=== PATIENT | female | born 2000 | race African-American/Black ===

== ENCOUNTER 2023-09-24 17:18 | Emergency (ER) | payer OTHER ==
--- OUTSIDE RECORDS SUMMARY | 2023-09-24 17:26 | XMS REPORT | Continuity of Care Document ---
:2000 Author Organization [facility] t Address [address] [facility] [address] [place] [address] Care Team Providers Name Role Phone Pcp, Patient Does Not Have A Primary Care Physician [id number] Fidelia Zhang PA-C Attending Clinician DEE MARIE Attending Clinician Unavailable EVONNE HARMON Attending Clinician Unavailable Josephine PASTRY FINISHEREvonne Attending Clinician Dee Marie MD Attending Clinician UNKNOWN, ATTENDING Attending Clinician Unavailable FIDELIA ZHANG Attending Clinician Unavailable Andre Stewart MD Attending Clinician ANDRE STEWART Attending Clinician Unavailable Nurse, [facility] Attending Clinician Unavailable Doctor Unassigned, [place] Attending Clinician Unavailable ELMIRA Attending Clinician Unavailable Cosmo Attending Clinician Unavailable [place] Admitting Clinician Unavailable Cosmo Admitting Clinician Unavailable Payers Payer Name Policy Type Policy Number Effective Date Expiration Date Paty ald[place] [id number] 2019 [place] (PP[place] 00:00:00 [facility] [id number] CHOICE (MEDICAID HMO) Problems Condition Condition Condition Status Onset Resolution Last Treating Co mments Source Name Details Category Date Date Treatment Clinician Date Obesity Obesity Disease Active 2020-11 Univers (BMI (BMI 0-08 ity of 30-39.9) 30-39.9) 00:00: [place] [id number] Medical Branch Need for Need for Disease Active Unive rs HPV HPV 6-01 ity of vaccin[place] Medical Branch Breakthrou Breakthrou Disease Active U nivers gh gh 6 ity of bleeding bleeding 00:00: [place] on on Medical Nexplanon Nexplanon Bran ch Vaginal Vaginal Disease Active Univers discharge discharge 04-13 ity of 00:00: [place] 00 Medical Branch Anxiety Anxiety Problem Active [place] 708 da [facility] Depressive Depressive Problem Active M [place] disorder Disorder 05-20 da 00:00: [facility] Atopic Atopic Disease Active Overview: [facility] s dermatitis dermatitis 312 [address] ity of and and 00:00: g of this [place] related related 00 note Medical condition condition might be Br anch different from the original. 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 Allergies, Adverse Reactions, Alerts Allergy Allergy Status Severity Reaction(s) Onset Inactive Treating Comm ents Source Name Type Date Date Clinician NO KNOWN Drug Active Univers ALLERGIE Class ity of S [facility] Social History Social Habit Start Date Stop Date Quantity Comments Source Gender identity Universit y of [facility] Sexual orientation Univer [facility]ity [facility] History SDNJ University o f Alcohol Std Drinks [facility] History [facility] University o f Alcohol Binge [place] [facility] Exposure to Not sure University of SARS-CoV-2 (event) [facility] History [facility] University o f Alcohol Comment [place] [facility] History of Social 2021-08-20 2021-08-20 Univers ity of function 00:00:00 00:00:00 [facility] Branch Alcohol intake 2021-08-20 2021-08-20 Lifetime University of 00:00:00 00:00:00 non-drinker [facility] (finding) [facility] Tobacco use and 2020-10-05 2020-10-05 Smokeless Universit y of exposure 00:00:00 00:00:00 tobacco non-user [facility] dical Branch History SDOH 2020-10-05 2020-10-05 1 University o f Alcohol Frequency 00:00:00 00:00:00 [facility] edical Branch Sex Assigned At 2000 2002 Universit y of 00:00:00 00:00:00 [facility] Branch Smoking Status Start Date Stop Date Source Never smoked tobacco [facility] Medications Ordered Filled Start Stop Current Ordering Indication Dosage Frequency Signature Comments Components Source Medication Medication Date Date Medication? Clinician (SIG) Name Name Matt 2020-11- No [id number] 100mg Take 1 Univers oin&Nit. 0-08 10-14 capsule by ity of Macrocryst 00:00: 04:59 mouth 2 [place] as (MACROBID) 00 :00 (two) Medical 100 mg times Branch capsule daily for 5 days. escitalopra Yes 10mg Take 10 mg Univers m oxalate 6-01 by mouth ity of (LEXAPRO) 13:52: daily. [place] 10 mg 23 Medical tablet Branch escitalopra Yes 10mg Take 10 mg Univers m oxalate 6-01 by mouth ity of (LEXAPRO) 13:52: daily. [place] 10 mg 23 Medical tablet Branch escitalopra Yes 10mg Take 10 mg Univers m oxalate 6-01 by mouth ity of (LEXAPRO) 13:52: daily. [place] 10 mg 23 Medical tablet Branch escitalopra Yes 10mg Take 10 mg Univers m oxalate 6-01 by mouth ity of (LEXAPRO) 13:52: daily. [place] 10 mg 23 Medical tablet Branch escitalopra Yes 10mg Take 10 mg Univers m oxalate 6-01 by mouth ity of (LEXAPRO) 13:52: daily. [place] 10 mg 23 Medical tablet Branch escitalopra Yes 10mg Take 10 mg Univers m oxalate 6-01 by mouth ity of (LEXAPRO) 13:52: daily. [place] 10 mg 23 Medical tablet Branch escitalopra Yes 10mg Take 10 mg Univers m oxalate 6-01 by mouth ity of (LEXAPRO) 13:52: daily. [place] 10 mg 23 Medical tablet Branch escitalopra Yes 10mg Take 10 mg Univers m oxalate 6-01 by mouth ity of (LEXAPRO) 13:52: daily. [place] 10 mg 23 Medical tablet Branch escitalopra Yes 10mg Take 10 mg Univers m oxalate 6-01 by mouth ity of (LEXAPRO) 13:52: daily. [place] 10 mg 23 Medical tablet Branch escitalopra Yes 10mg Take 10 mg Univers m oxalate 6-01 by mouth ity of (LEXAPRO) 13:52: daily. [place] 10 mg 23 Medical tablet Branch escitalopra Yes 10mg Take 10 mg Univers m oxalate 6-01 by mouth ity of (LEXAPRO) 13:52: daily. [place] 10 mg 23 Medical tablet Branch escitalopra Yes 10mg Take 10 mg Univers m oxalate 6-01 by mouth ity of (LEXAPRO) 13:52: daily. [place] 10 mg 23 Medical tablet Branch norgestimat Yes [id number] 1{tbl} Take 1 Univers e-ethinyl 6-01 tablet by ity o f estradioL 00:00: mouth [place] 0.25-35 00 daily. Medical mg-mcg per Branch tablet norgestimat Yes [id number] 1{tbl} Take 1 Univers e-ethinyl 6-01 tablet by ity o f estradioL 00:00: mouth [place] 0.25-35 00 daily. Medical mg-mcg per Branch tablet norgestimat Yes [id number] 1{tbl} Take 1 Univers e-ethinyl 6-01 tablet by ity o f estradioL 00:00: mouth [place] 0.25-35 00 daily. Medical mg-mcg per Branch tablet norgestimat Yes [id number] 1{tbl} Take 1 Univers e-ethinyl 6-01 tablet by ity o f estradioL 00:00: mouth [place] 0.25-35 00 daily. Medical mg-mcg per Branch tablet norgestimat Yes [id number] 1{tbl} Take 1 Univers e-ethinyl 6-01 tablet by ity o f estradioL 00:00: mouth [place] 0.25-35 00 daily. Medical mg-mcg per Branch tablet norgestimat Yes [id number] 1{tbl} Take 1 Univers e-ethinyl 6-01 tablet by ity o f estradioL 00:00: mouth [place] 0.25-35 00 daily. Medical mg-mcg per Branch tablet norgestimat Yes [id number] 1{tbl} Take 1 Univers e-ethinyl 6-01 tablet by ity o f estradioL 00:00: mouth [place] 0.25-35 00 daily. Medical mg-mcg per Branch tablet norgestimat Yes [id number] 1{tbl} Take 1 Univers e-ethinyl 6-01 tablet by ity o f estradioL 00:00: mouth [place] 0.25-35 00 daily. Medical mg-mcg per Branch tablet norgestimat Yes [id number] 1{tbl} Take 1 Univers e-ethinyl 6-01 tablet by ity o f estradioL 00:00: mouth [place] 0.25-35 00 daily. Medical mg-mcg per Branch tablet norgestimat Yes [id number] 1{tbl} Take 1 Univers e-ethinyl 6-01 tablet by ity o f estradioL 00:00: mouth [place] 0.25-35 00 daily. Medical mg-mcg per Branch tablet norgestimat Yes [id number] 1{tbl} Take 1 Univers e-ethinyl 6-01 tablet by ity o f estradioL 00:00: mouth [place] 0.25-35 00 daily. Medical mg-mcg per Branch tablet norgestimat Yes [id number] 1{tbl} Take 1 Univers e-ethinyl 6-01 tablet by ity o f estradioL 00:00: mouth [place] 0.25-35 00 daily. Medical mg-mcg per Branch tablet etonogestre 2019-11 Yes 68mg 68 mg by Un raghavendra L 68 mg 1-23 Subdermal ity of [place] 15:13: route [place] 36 [place]. Medical Branch etonogestre 2019-11 Yes 68mg 68 mg by Un raghavendar L 68 mg 1-23 Subdermal ity of [place] 15:13: route [place] 36 [place]. Medical Branch etonogestre 2019-11 Yes 68mg 68 mg by Un raghavendra L 68 mg 1-23 Subdermal ity of [place] 15:13: route [place] 36 now. Medical Branch etonogestre 2019-11 Yes 68mg 68 mg by Un raghavendra L 68 mg 1-23 Subdermal ity of [place] 15:13: route [place] 36 now. Medical Branch etonogestre 2019-11 Yes 68mg 68 mg by Un raghavendra L 68 mg 1-23 Subdermal ity of [place] 15:13: route [place] 36 now. Medical Branch etonogestre 2019- Yes 68mg 68 mg by Un raghavendra L 68 mg 1-23 Subdermal ity of implant 15:13: route [place] now. Medical Branch etonogestre 2019-11 Yes 68mg 68 mg by Un raghavendra L 68 mg 1-23 Subdermal ity of [place] 15:13: route [place] now. Medical Branch etonogestre 2019-11 Yes 68mg 68 mg by Un raghavendra L 68 mg 1-23 Subdermal ity of implant 15:13: route once [place] now. Medical Branch etonogestre 2019-11 Yes 68mg 68 mg by Un raghavendra L 68 mg 1-23 Subdermal ity of implant 15:13: route [place] now. Medical Branch etonogestre 2019-11 Yes 68mg 68 mg by Un raghavendra L 68 mg 1-23 Subdermal ity of implant 15:13: route once [place] 36 now. Medical Branch etonogestre 2019-11 Yes 68mg 68 mg by Un raghavendra L 68 mg 1-23 Subdermal ity of implant 15:13: route once [place] 36 now. Medical Branch etonogestre 2019-11 Yes 68mg 68 mg by Un raghavendra L 68 mg 1-23 Subdermal ity of implant 15:13: route once [place] 36 now. Medical Branch fluticasone Yes [id number] Apply to Univers (CUTIVATE) 3-12 area(s) 2 ity of 0.05 % 00:00: (two) [place] cream 00 times Medical daily. Branch fluticasone Yes [id number] Apply to Univers (CUTIVATE) 3-12 area(s) 2 ity of 0.05 % 00:00: (two) [place] cream 00 times Medical daily. Branch fluticasone 2012- Yes [id number] Apply to Univers (CUTIVATE) 3-12 area(s) 2 ity of 0.05 % 00:00: (two) [place] cream 00 times Medical daily. Branch fluticasone 2012- Yes [id number] Apply to Univers (CUTIVATE) 3-12 area(s) 2 ity of 0.05 % 00:00: (two) [place] cream 00 times Medical daily. Branch fluticasone 2012-0 Yes [id number] Apply to Univers (CUTIVATE) 3-12 area(s) 2 ity of 0.05 % 00:00: (two) [place] cream 00 times Medical daily. Branch fluticasone 2012-0 Yes [id number] Apply to Univers (CUTIVATE) 3-12 area(s) 2 ity of 0.05 % 00:00: (two) [place] cream 00 times Medical daily. Branch fluticasone 2012-0 Yes [id number] Apply to Univers (CUTIVATE) 3-12 area(s) 2 ity of 0.05 % 00:00: (two) [place] cream 00 times Medical daily. Branch fluticasone 2012-0 Yes [id number] Apply to Univers (CUTIVATE) 3-12 area(s) 2 ity of 0.05 % 00:00: (two) [place] cream 00 times Medical daily. Branch fluticasone 2012-0 Yes [id number] Apply to Univers (CUTIVATE) 3-12 area(s) 2 ity of 0.05 % 00:00: (two) [place] cream 00 times Medical daily. Branch fluticasone 2012- Yes [id number] Apply to Univers (CUTIVATE) 3-12 area(s) 2 ity of 0.05 % 00:00: (two) [place] cream 00 times Medical daily. Branch fluticasone 2012-0 Yes [id number] Apply to Univers (CUTIVATE) 3-12 area(s) 2 ity of 0.05 % 00:00: (two) [place] cream 00 times Medical daily. Branch fluticasone 2012- Yes [id number] Apply to Univers (CUTIVATE) 3-12 area(s) 2 ity of 0.05 % 00:00: (two) [place] cream 00 times Medical daily. Karen escitalopra escitalopra No escitalopr [place] m 10 mg m 10 mg am 10 mg da tablet TK 1 tablet TK 1 tablet TK [facility] PO QD T PO QD 1 T PO QD al [facility] Mirena 20 Mirena 20 No Mirena 20 [place] mcg/24 mcg/24 mcg/24 da hours (5 hours (5 hours (5 Epi scop yrs) 52 mg yrs) 52 mg yrs) 52 mg al intrauterin intrauterin intrauteri Health e device e device ne device Ou treac Take 1 Take 1 Take 1 h device by device by device by Program intrauterin intrauterin intrauteri e route. e route. ne route. Immunizations Ordered Filled Date Status Comments Source Immunization Name Immunization Name [facility] 2021-07-14 Completed University of 00:00: [place] [address] 2021-07-14 Completed University of 00:00:00 [place] [address] 2021-07-14 Completed University of 00:00: [facility] 2021-07-14 Completed University of 00:00:00 [facility] 2021-07-14 Completed University of 00:00:00 [facility] 2021-07-14 Completed University of 00:00:00 [facility] 2021-07-14 Completed University of 00:00:00 [facility] 2021-07-14 Completed University of 00:00:00 [place] [address] 2021-07-14 Completed University of 00:00:00 [facility] 2021-07-14 Completed University of 00:00:00 [facility] 2021-07-14 Completed University of 00:00:00 [facility] 2021-04-13 Completed University of 00:00:00 [facility] 2021-04-13 Completed University of 00:00:00 [facility] 2021-04-13 Completed University of 00:00:00 [facility] 2021-04-13 Completed University of 00:00:00 [facility] 2021-04-13 Completed University of 00:00:00 [facility] 2021-04-13 Completed University of 00:00:00 [facility] 2021-04-13 Completed University of 00:00:00 [facility] 2021-04-13 Completed University of 00:00:00 [facility] 2021-04-13 Completed University of 00:00:00 [facility] 2021-04-13 Completed University of 00:00:00 [facility] 2021-04-13 Completed University of 00:00:00 [facility] Unknown Completed [place] [address] Unknown Completed [facility] Vital Signs Vital Name Observation Time Observation Value Comments Source Systolic blood 2023-06-04 00:18:00 127 mm[Hg] Univer sity of pressure [facility] Diastolic blood 2023-06-04 00:18:00 90 mm[Hg] Unive rsity of pressure [facility] Heart rate 2023-06-04 00:18:00 94 /min Universi ty of [facility] Body temperature 2023-06-04 00:18:00 38.11 Noemi Univ ersity of [facility] Respiratory rate 2023-06-04 00:18:00 18 /min Univ ersity of [facility] Body height 2023-06-04 00:18:00 165.1 cm Universi ty [facility] Body weight 2023-06-04 00:18:00 81.647 kg Universi ty of [facility] BMI 2023-06-04 00:18:00 29.95 kg/m2 Universi ty of [facility] Oxygen saturation in 2023-06-04 00:18:00 98 /min [facility] Arterial blood by [facility] Pulse oximetry Branch Systolic blood 2021-08-20 17:02:00 138 mm[Hg] Univer sity of pressure [facility] Diastolic blood 2021-08-20 17:02:00 77 mm[Hg] Unive rsity of pressure [facility] Heart rate 2021-08-20 17:02:00 69 /min Universi ty of [facility] Body temperature 2021-08-20 17:02:00 36.94 Noemi Univ ersity of [facility] Respiratory rate 2021-08-20 17:02:00 18 /min Univ ersity of [facility] Body height 2021-08-20 17:02:00 157.5 cm [facility]i ty of [facility] Body weight 2021-08-20 17:02:00 75.297 kg Universi ty of [facility] BMI 2021-08-20 17:02:00 30.36 kg/m2 Universi ty of [facility] Body mass index 2021-08-20 17:02:00 94.39 % Unive rsity of (BMI) [Percentile] [facility] [place] ical Per age and sex Branch BP Diastolic 2020-06-22 00:00:00 70 mm[Hg] Yumiko telles [facility] Height 2020-06-22 00:00:00 63 [in_i] [place] [facility] BMI (Body Mass 2020-06-22 00:00:00 28.9 kg/m2 [place]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) [facility] BP Systolic 2020-06-22 00:00:00 118 mm[Hg] [place] [facility] Body Weight 2020-06-22 00:00:00 163 [lb_av] [place] [facility] BP Diastolic 2020-05-20 00:00:00 66 mm[Hg] [place] [facility] Height 2020-05-20 00:00:00 63 [in_i] [place] [facility] BMI (Body Mass 2020-05-20 00:00:00 28.1 kg/m2 [place]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) [facility] BP Systolic 2020-05-20 00:00:00 116 mm[Hg] [place] [facility] Body Weight 2020-05-20 00:00:00 158.4 [lb_av] [place] [facility] Procedures Procedure Date / Time Performed Performing Clinician [facility] e ASSIGNMENT OF BENEFITS 2023-06-04 00:30:30 Doctor Unassigned, No [facility] Medical Branch NOTICE OF PRIVACY 2023-06-04 00:15:22 Doctor Unassigned, No [facility] [place] CONSENT/REFUSAL FOR 2023-06-04 00:14:27 Doctor Unassigned, No Un [facility] DIAGNOSIS AND [facility] Medical Branch TREATMENT POCT URINALYSIS W/O 2021-08-20 00:00:00 [facility]IFIC GRAVITY Medical Branch Plan of Care Planned Activity Planned Date Details Comments Source Diagnostic Test 2020-06-22 test, [place] [facility] Pending 00:00:00 urine [code = Health Outreac h test, Program urine] Encounters Start End Encounter Admission Attending Care Care Encounter Source Date/Time Date/Time Type Type Clinicians Facility Department ID 2023-08-04 2023-08-04 Telephone TOBIAS Zhang [id number] Univers 00:00:00 00:00:00 Fidelia TAYLOR [id number] i ty of [facility] [id number] [id number] [place] dical NAL [address] [place] [address] 2023-08-01 2023-08-01 Telephone [facility] [id number] Univers 00:00:00 00:00:00 Fidelia TAYLOR [id number] i ty of [place] [id number] [place] [id number] [address] 2023-07-21 2023-07-21 [facility] [id number] Univers 09:00:00 09:00:00 DEE ng [facility] 2023-06-03 2023-06-03 Emergency X [facility] ERT [id number] Univers 19:23:00 19:27:00 EVONNE ng [facility] 2023-06-03 2023-06-03 Emergency [facility] [id number] Univers 19:23:00 19:27:00 Evonne TAYLOR [id number] ity [id number] [id number] [address] 2023-05-30 2023-05-30 Telephone [facility] [id number] Univers 00:00:00 00:00:00 Dee TAYLOR [id number] ity of [facility] [id number] [id number] [place] dical NAL [address] [place] [address] 2023-04-20 2023-04-20 Telephone [facility] [id number] Univers 00:00:00 00:00:00 Fidelia TAYLOR [id number] i ty of [facility] [id number] [id number] [place] dical NAL [address] [place] [address] 2022-11-192022-11-19 Outpatient R NIKIA [facility] [id number] Univers 13:20:00 13:20:00 ATTENDING y [facility] 2022-11-16 2022-11-16 Outpatient R LULY [facility] [id number] Univers 15:00:00 15:00:00 [facility] 2022-11-14 2022-11-14 Outpatient Kai ZHANG [facility] [id number] Univers 14:00:00 14:00:00 [facility] 2022-09-27 2022-09-27 Telephone Andre Stewart [facility] [id number] [id number] Univers 00:00:00 00:00:00 [place] [id number] it y of [id number] [id number] [address] 2022-02-18 2022-02-18 Andre Mon [facility] [id number] Univers 00:00:00 00:00:00 [place] [id number] it y of [place] [id number] [id number] [address] 2021-10-15 2021-10-15 Outpatient R ANDRE STEWART [facility] [id number] Univers 15:15:00 15:15:00 ity [facility] 2021-10-12 2021-10-12 Telephone Andre Stewart [facility] 1.2.840.11 [id number] Univers 00:00:00 00:00:00 [place] [id number] it y of [place].2.[place] [facility] [id number] [address] 2021-10-06 2021-10-06 Outpatient R ANDRE STEWART [facility] [id number] Univers 15:30:00 [facility]:30[facility] 2021-09-13 2021-09-13 Andre Mon [facility] 1.2.840.11 [id number] Univers 00:00:00 00:00:00 [place] [id number] it [place] [facility] [id number] [address] 2021-09-10 2021-09-10 Telephone Andre Stewart 1.2.840.11 [id number] Univers 00:00:00 00:00:00 [place] 350.1.13.10 it y of [place] 4[place] [id number] [address] 2021-09-09 2021-09-09 Andre Mon CARLIN 1.2.840.11 [id number] Univers 00:00:00 00:00:00 [place] 350.1.13.10 it y of [place] 4[place]2.[place].2.[place] [id number] [address] 2021-08-20 2021-08-20 Office Andre Stewart [facility] [id number] [id number] Univers 11:20:52 12:44:54 Visit Shahrzad 350.1.13.10 i ty of [place] 4.[place].7.2.[place] Profess[place] [id number] [place] dical [address] 2021-08-20 2021-08-20 Outpatient R ANDRE STEWART [facility] [id number] Univers 11:00:00 11:00:00 ity of [facility] 2021-08-13 2021-08-13 Outpatient R ANDRE STEWART [facility] [id number] Univers 13:00:00 13:00:00 ity of [facility] 2021-08-11 2021-08-11 Andre Mon NYANNA [place] 1.2.840.11 [id number] Univers 00:00:00 00:00:00 [place] 350.1.13.10 it y of [place]2.[place].2.[place] [id number] [address] 2021-07-14 2021-07-14 Nurse Nurse, [facility] 1.2.840.114 [id number] Univers 11:07:52 11:22:52 Visit Andre Stewart 350.1.13.10 ity of Women's 4.2.7.2.686 [facility] [id number] [address] 2021-07-14 2021-07-14 Outpatient R [facility] [id number] Univers 10:30:00 10:30:00 ity of [facility] 2021-06-21 2021-06-21 Telephone Andre Stewart [place] 1.2.840.11 [id number] Univers 00:00:00 00:00:00 [place] 350.1.13.10 it y of Women's 4.2.7.2.686 [facility] [id number] [address] 2021-05-28 2021-05-28 Outpatient R TERRYANDRE [facility] [id number] Univers 13:00:00 13:00:00 ity of [facility] 2021-05-21 2021-05-21 Outpatient R ANDRE STEWART [facility] [id number] Univers 15:45:00 15:45:00 ity of [facility] 2021-04-13 2021-04-13 Outpatient R ANDRE STEWART [facility] [id number] Univers 13:15:00 13:15:00 ity of [facility] 2021-01-29 2021-01-29 Orders Doctor ANASTASIA 1.2.840.114 [id number] Univers 00:00:00 00:00:00 Only Unassigned, SIRENA 350.1.13.10 [facility]y [facility] 4.2.7.2.686 [place] [id number] [place] [address] Branch 2021-01-12 2021-01-12 Outpatient R ANDRE STEWART [facility] [id number] Univers 15:00:00 15:00:00 ity of [facility] 2020-10-05 2020-10-05 Outpatient R TERRY ANDRE [facility] [id number] Univers 14:45:00 14:45:00 ity of [facility] 2020-10-05 2020-10-05 Orders Doctor OCONNOR 1.2.840.114 [id number] Univers 00:00:00 00:00:00 Only Unassigned, SIRENA 350.1.13.10 ity of [place] [facility] 4.2.7.2.686 [place] as [id number] [address] 2020-07-29 2020-07-29 Orders Doctor ANASTASIA 1.2.840.114 [id number] Univers 00:00:00 00:00:00 Only Unassigned, SIRENA 350.1.13.10 ity of [place] [facility] 4.2.7.2.686 [place] as [id number] [address] 2020-06-22 2020-06-22 Outpatient LISTER_MELI MEHOP MEHOP 923 [place] 04:08:00 04:08:00 [facility] 0810 [facility] 2020-06-22 2020-06-22 Vicky MEHOP [place] - [id number] M [place] 00:00:00 00:00:00 Jami [place], [facility] [facility] p 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 [phone] Annabel am , Ph. 2020-05-21 2020-05-21 Outpatient LISTER_MELI MEHOP MEHOP 923 [place] 11:42:00 11:42:00 [id number] 2020-05-20 2020-05-20 Outpatient LISTER_MELI MEHOP MEHOP [address] [place] 06:03:00 06:03:00 [id number] 2020-05-20 2020-05-20 Vicky GARCIAHOP [place] - [id number] M [place] 00:00:00 00:00:00 Jami Lawton, [employer] [facility] 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 [place] [place] [address] Annabel am , Ph. 2020-02-18 2020-02-18 Outpatient Cosmo MMG MMG [id number] [place] 05:44:00 05:44:00 [id number] Results Test Description Test Time Test Comments Results Result Comments Source POCT URINALYSIS W/O SPECIFIC GRAVITY 2021-08-20 17:08:00 Test Item Value Reference Range Interpretation Comme nts POCT PH U (test code = 3254) 5 mg/dl 5-8 POCT U LEUK EST (test code = 3263) neg Negative - Negative POCT U NIT (test code = 3262) pos Negative - Negative POCT U PROT (test code = 3259) trace Negative - Negative POCT U GLU (test code = 3256) neg Negative - Negative POCT U KETONE (test code = 3258) neg Negative - Negative POCT U BLD (test code = 3257) neg Negative - Negative [facility]
[2023-09-24 18:19] LABS: SARS-COV-2 RT PCR NEGATIVE (NEGATIVE)
--- NOTE | 2023-09-24 18:22 | EDPHYS ---
Physician Documentation [facility] Name: Candice Lyle Age: 23 yrs Sex: Female : 2000 Arrival Date: 09/24/2023 Time: 17:18 Bed 12 Private MD: ED Physician Eduardo Perdomo HPI: 09/24 17:25 This 23 yrs old Black Female presents to ER via Ambulatory with complaints of Sore kb Throat, Dizziness, Shortness Of Breath, Headache. 17:25 The patient or guardian reports cough, that is intermittent, described as mild, flu kb symptoms, low-grade fever, no appetite. Onset: The symptoms/episode began/occurred 4 day(s) ago. Severity of symptoms: At their worst the symptoms were mild, in the emergency department the symptoms are unchanged. Modifying factors: The symptoms are alleviated by nothing, the symptoms are aggravated by nothing. Associated signs and symptoms: Pertinent positives: sore throat. The patient has not experienced similar symptoms in the past. The patient has not recently seen a physician. Historical: - Allergies: 17:25 No Known Allergies; ss - Home Meds: 17:25 None [Active]; ss - PMHx: 17:25 None; ss - PSHx: 17:25 None; ss - Immunization history:: Adult Immunizations up to date. - Social history:: Patient/guardian denies using Smoking status: Patient denies any tobacco usage or history of. ROS: 17:24 Abdomen/GI: Negative for abdominal pain, nausea, vomiting, diarrhea, and constipation, kb 17:24 Constitutional: Positive for chills, fatigue, malaise, poor PO intake, 17:24 ENT: Positive for sore throat, 17:24 Respiratory: Positive for cough, 17:24 Neuro: Positive for headache, 17:24 All other systems are negative, Exam: 17:24 Constitutional: This is a well developed, well nourished patient who is awake, alert, kb and in no acute distress. Head/Face: Normocephalic, atraumatic. ENT: Moist Mucous membranes Cardiovascular: Regular rate Respiratory: Respirations even and unlabored. No increased work of breathing. Talking in full sentences Skin: Warm, dry with normal turgor. Normal color. MS/ Extremity: Pulses equal, no cyanosis. Neurovascular intact. Full, normal range of motion. Neuro: Awake and alert, GCS 15, oriented to person, place, time, and situation. Moves all extremities. Normal gait. Vital Signs: 17:24 Pulse 76; Resp 16; Temp 98.2; Pulse Ox 100% on R/A; Weight 81.19 kg; Height 5 ft. 4 in. ss ; Pain 8/10; 17:25 BP 133 / 82; ss 17:24 Body Mass Index 30.72 (81.19 kg, 162.56 cm) ss 17:24 Pain Scale: Adult ss MDM: 17:21 Patient medically screened. kb 17:24 Differential diagnosis: flu, covid, rsv, uri, strep. Data reviewed: vital signs, nurses kb notes. Test considered but Not performed: X-ray: chest x-ray considered. lungs clear bilaterally, resp even and unlabored, 100% oxygen saturation on room air. 18:21 Counseling: I had a detailed discussion with the patient and/or guardian regarding the kb historical points, exam findings, and any diagnostic results supporting the discharge/admit diagnosis, lab results, the need for outpatient follow up, a family practitioner, to return to the emergency department if symptoms worsen or persist or if there are any questions or concerns that arise at home. 09/24 17:21 Order name: COVID-19/FLU A+B/RSV; Complete Time: 18:21 09/24 17:21 Order name: Strep 09/24 17:52 Order name: Throat Culture EDMS Administered Medications: No medications were administered Disposition Summary: 09/24/23 18:22 Discharge Ordered Notes: Location: Home Condition: Stable kb Diagnosis - Acute upper respiratory infection, unspecified kb Followup: kb - With: Emergency Department - When: As needed - Reason: Worsening of condition Followup: kb - With: Private Physician - When: 2 - 3 days - Reason: Recheck today's complaints, Continuance of care, Re-evaluation by your physician Discharge Instructions: - Discharge Summary Sheet kb - Upper Respiratory Infection, Adult, [id number] kb - Viral Respiratory Infection, [id number] kb Forms: - Medication Reconciliation Form kb - Thank You Letter kb - Antibiotic Education kb - Prescription Opioid Use kb - Patient Portal Instructions kb - Leadership Thank You Letter kb Addendum: 09/26/2023 07:42 I was immediately available for consultation during this patient's visit. I did not e c2 personally see the patient or guide the patient's care.. Signatures: Dispatcher [employer] Kari Vu, TAWANNA SARABIA-Deb Landin RN RN ss Adilia Lee RN RN ld1 Eduardo Perdomo MD MD ec2
--- NOTE | 2023-09-24 18:22 | ER ---
Nurse's Notes [facility] Name: Candice Lyle Age: 23 yrs Sex: Female : 2000 Arrival Date: 09/24/2023 Time: 17:18 Bed 12 Private MD: Diagnosis: Acute upper respiratory infection, unspecified Presentation: 09/24 17:24 Chief complaint: Patient states: sore throat, headache and dizziness that has been ss ongoing x 4 days. Pt states, "I think I have COVID.". Coronavirus screen: Client denies travel out of the [place] in the last 14 days. Ebola Screen: Patient denies exposure to infectious person. Patient denies travel to an Ebola-affected area in the 21 days before illness onset. Initial Sepsis Screen: Does the patient meet any 2 criteria? No. Patient's initial sepsis screen is negative. Does the patient have a suspected source of infection? No. Patient's initial sepsis screen is negative. Risk Assessment: Do you want to hurt yourself or someone else? Patient reports no desire to harm self or others. Onset of symptoms was September 20, 2023. 17:24 Method Of Arrival: Ambulatory ss 17:24 Acuity: BARTOLOME 4 ss Triage Assessment: 18:53 General: Appears in no apparent distress. comfortable, Behavior is calm, cooperative, ld1 appropriate for age. Pain: Denies pain. EENT: No deficits noted. Neuro: Level of Consciousness is awake, alert, obeys commands, Oriented to person, place, time, situation. Cardiovascular: Capillary refill < 3 seconds Patient's skin is warm and dry. Respiratory: Airway is patent Respiratory effort is even, unlabored. Historical: - Allergies: 17:25 No Known Allergies; ss - Home Meds: 17:25 None [Active]; ss - PMHx: 17:25 None; ss - PSHx: 17:25 None; ss - Immunization history:: Adult Immunizations up to date. - Social history:: Patient/guardian denies using Smoking status: Patient denies any tobacco usage or history of. Screenin:53 [facility] ED Fall Risk Assessment (Adult) History of falling in the last 3 months, ld1 including since admission No falls in past 3 months (0 pts). Abuse screen:. Abuse screen: Denies threats or abuse. Denies injuries from another. Nutritional screening: No deficits noted. Tuberculosis screening: No symptoms or risk factors identified. Assessment: 18:53 Reassessment: See triage assessment. ld1 Vital Signs: 17:24 Pulse 76; Resp 16; Temp 98.2; Pulse Ox 100% on R/A; Weight 81.19 kg; Height 5 ft. 4 in. ss ; Pain 8/10; 17:25 BP 133 / 82; ss 17:24 Body Mass Index 30.72 (81.19 kg, 162.56 cm) ss 17:24 Pain Scale: Adult ss ED Course: 17:20 Patient arrived in ED. mg5 17:21 Kari Foss FNP-C is [facility]. kb 17:21 Eduardo Perdomo MD is Attending Physician. kb 17:24 Arm band placed on left wrist. ss 17:25 Triage completed. ss 17:37 COVID-19/FLU A+B/RSV Sent. em1 17:37 Strep Sent. em1 17:38 COVID swab sent to lab. Flu and/or RSV swab sent to lab. Strep swab sent to lab. em1 18:54 Patient has correct armband on for positive identification. Placed in gown. Bed in low ld1 position. Side rails up X 1. Side rails up X2. media center assistant on. Pulse ox on. NIBP on. Door closed. Noise minimized. Warm blanket given. 18:54 No provider procedures requiring assistance completed. Patient did not have IV access ld1 during this emergency room visit. Administered Medications: No medications were administered Medication: 18:54 VIS not applicable for this client. ld1 Outcome: 18:22 Discharge ordered by . kb 18:54 Discharged to home ambulatory, ld1 18:54 Condition: stable 18:54 Discharge instructions given to patient, Instructed on discharge instructions, follow up and referral plans. Demonstrated understanding of instructions, follow-up care, 18:54 Patient left the ED. ld1 Signatures: Kari Foss FNP-C FNP-Ckb Martinez, Eric em1 Deb Salazar, DANGELO RN Adilia Lee RN RN ld1 Karen Steiner mg5
[2023-09-24 19:21] VITALS: TEMP 98.2; O2SAT 100
[2023-09-24 19:22] VITALS: BP 133/82
== END 2023-09-24 18:54 | disposition home or self-care (01) ==
LOC: ER 17:18
DX: J06.9 Acute upper respiratory infection, unspecified (principal); Z11.52 Encounter for screening for COVID-19
CPT/HCPCS: 87070; 87081; 0241U; 99284

== ENCOUNTER 2024-07-13 17:35 | Emergency (ER) | payer SELFPAY ==
--- OUTSIDE RECORDS SUMMARY | 2024-07-13 17:39 | XMS REPORT | Continuity of Care Document ---
Author Name Unknown Address [address] [facility] [address] [place] [address] [facility] Address [address] [facility]. [address] [place] [address] Care Team Providers Care Vamp Creaser Name Role Phone Pcp, Patient Does Not Have A Primary Care Physic ruben Camilla Paredes MD Attending Clinician [phone] Andre Ott MD Attending Clinician Unavailable Fidelia Mauricio PA-C Attending Clinician [phone] DEE DANIELS Attending Clinician Unavailable EVONNE HARMON Attending Clinician Unavailable Josephine CUPOLA OPERATOREvonne Attending Clinician [phone] Dee Daniels MD Attending Clinician [phone] UNKNOWN, ATTENDING Attending Clinician Unavailab FIDELIA Koehler Attending Clinician Unavailable ANDRE OTT Attending Clinician Unavailable Nurse, [facility] Attending Clinician Unavailable Doctor Unassigned, [place] Attending Clinician U navailable ELMIR[place] Attending Clinician Unavailable Cosmo Attending Clinician Unavailable [place]A Admitting Clinician Unavailable Cosmo Admitting Clinician Unavailable Payers Payer Name Policy Type Policy Number Effective Date Expirati on Date Source [place] [id number] 2019 00:00:00 [facility] (MEDICAID HMO) [id number] Problems Condition Name Condition Details Condition Category Status Onset Date Resolution Date Last Treatment Date Treating Clinician Comments Source Obesity (BMI 30-39.9) Obesity (BMI 30-39.9) Disease Active 2020-11 008 00:00: 00 [facility] Need for HPV vaccinatio n Need for HPV vaccinatio n Disease Active 04-13 00:00: 00 [facility] Breakthrou gh bleeding on Nexplanon Breakthrou gh bleeding on Nexplanon Disease Active 04-13 00:00: 00 [facility] Vaginal discharge Vaginal discharge Disease Active 04-13 00:00: 00 [facility] Anxiety Anxiety Problem Active 05-20 00:00: 00 [facility] Depressive disorder Depressive Disorder Problem Active 05-20 00:00: 00 [facility] Atopic dermatitis and related condition Atopic dermatitis and related condition Disease Active 01-22 00:00: 00 Overview: Formattin g of this note might be different from the original. ICD10 Diagnosis Term Reporting Process Consultant Utility [facility] Allergies, Adverse Reactions, Alerts Allergy Name Allergy Type Status Severity Reaction(s) Onset Date Inactive Date Treating Clinician Comments Source NO KNOWN ALLERGIE S Drug Class Active [facility] Social History Social Habit Start Date Stop Date Quantity Comments Source Gender identity [facility] Sexual orientation U [facility] History SDOH Alcohol Std Drinks [facility] History SDOH Alcohol Binge [facility] Exposure to SARS-CoV-2 (event) Not sure [facility] History SDOH Alcohol Comment [facility] History of Social function 2021-08-20 00:00:00 2021-08-20 00:00:00 [facility] Alcohol intake 2021-08-20 00:00:00 2021-08-20 00:00:00 Lifetime non-drinker (finding) [facility] Alcoholic beverage intake 2021-08-20 00:00:00 2021-08-20 00:00:00 Lifetime non-drinker (finding) [facility] Tobacco use and exposure 2020-10-05 00:00:00 2020-10-05 00:00:00 Smokeless tobacco non-user [facility] History SDOH Alcohol Frequency 2020-10-05 00:00:00 2020-10-05 00:00:00 1 [facility] Sex assigned at 2002 00:00:00 2002 00:00:00 [facility] Smoking Status Start Date Stop Date Source Never smoked tobacco [facility] Medications Ordered Medication Name Filled Medication Name Start Date Stop Date Current Medication? Ordering Clinician Indication Dosage Frequency Signature (SIG) Comments Components Source Nitrofurant oin&Nit. Macrocryst (MACROBID) 100 mg capsule 2020-11 00:00: 00 08-26 04:59 :00 No [id number] 100mg Take 1 capsule by mouth 2 (two) times daily for [address] [facility] escitalopra m oxalate (LEXAPRO) 10 mg tablet 04-13 13:52: 23 Yes 10mg Take 10 mg by mouth daily. [facility] norgestimat e-ethinyl estradioL 0.25-35 mg-mcg per tablet 04-13 00:00: 00 Yes [id number] 1{tbl} Take 1 tablet by mouth daily. [facility] etonogestre L 68 mg implant 2019-11 15:13: 36 Yes 68mg 68 mg by Subdermal route once now. [facility] fluticasone (CUTIVATE) 0.05 % cream 01-22 00:00: 00 Yes [id number] Apply to area(s) 2 (two) times daily. [facility] Mirena 20 mcg/24 hours (5 yrs) 52 mg intrauterin e device Take 1 device by intrauterin e route. Mirena 20 mcg/24 hours (5 yrs) 52 mg intrauterin e device Take 1 device by intrauterin e route. No Mirena 20 mcg/24 hours (5 yrs) 52 mg intrauteri ne device Take 1 device by intrauteri ne route. [facility] Immun[facility] Ordered Immunization Name Filled Immunization Name Date Status Comments Source HPV9 2021-07-14 00:00:00 Completed [facility] HPV9 2021-07-14 00:00:00 Completed [facility] HPV9 2021-07-14 00:00:00 Completed [facility] 2021-07-14 00:00:00 Completed [facility] HPV9 2021-07-14 00:00:00 Completed [facility] HPV9 2021-07-14 00:00:00 Completed [facility] HPV9 2021-07-14 00:00:00 Completed [facility] HPV9 2021-07-14 00:00:00 Completed [facility] HPV9 2021-07-14 00:00:00 Completed [facility] HPV9 2021-07-14 00:00:00 Completed [facility] HPV9 2021-07-14 00:00:00 Completed [facility] HPV9 2021-04-13 00:00:00 Completed [facility] HPV9 2021-04-13 00:00:00 Completed [facility] HPV9 2021-04-13 00:00:00 Completed [facility] HPV9 2021-04-13 00:00:00 Completed [facility] HPV9 2021-04-13 00:00:00 Completed [facility] HPV9 2021-04-13 00:00:00 Completed [facility] HPV9 2021-04-13 00:00:00 Completed [facility] HPV9 2021-04-13 00:00:00 Completed [facility] HPV9 2021-04-13 00:00:00 Completed [facility] HPV9 2021-04-13 00:00:00 Completed [facility] HPV9 2021-04-13 00:00:00 Completed [facility] HPV9 Unknown Completed [facility] HPV9 Unknown Completed [facility] HPV9 Unknown Completed [facility] HPV9 Unknown Completed [facility] HPV9 Unknown Completed [facility] HPV9 Unknown Completed [facility] Vital Signs Vital Name Observation Time Observation Value Comments S ource Systolic blood pressure 2023-06-04 00:18:00 127 mm[Hg] [facility] Diastolic blood pressure 2023-06-04 00:18:00 90 mm[Hg] [facility] Heart rate 2023-06-04 00:18:00 94 /min Unive [facility] Body temperature 2023-06-04 00:18:00 38.11 Noemi [facility] Respiratory rate 2023-06-04 00:18:00 18 /min [facility] Body height 2023-06-04 00:18:00 165.1 cm [facility] Body weight 2023-06-04 00:18:00 81.647 kg [facility] BMI 2023-06-04 00:18:00 29.95 kg/m2 [facility] Oxygen saturation in Arterial blood by Pulse oximetry 2023-06-04 00:18:00 98 /min [facility] Systolic blood pressure 2021-08-20 17:02:00 138 mm[Hg] [facility] Diastolic blood pressure 2021-08-20 17:02:00 77 mm[Hg] [facility] Heart rate 2021-08-20 17:02:00 69 /min [facility] Body temperature 2021-08-20 17:02:00 36.94 Noemi [facility] Respiratory rate 2021-08-20 17:02:00 18 /min [facility] Body height 2021-08-20 17:02:00 157.5 cm [facility] Body weight 2021-08-20 17:02:00 75.297 kg [facility] BMI 2021-08-20 17:02:00 30.36 kg/m2 [facility] Body mass index (BMI) [Percentile] Per age and sex 2021-08-20 17:02:00 94.39 % [facility] BP Diastolic 2020-06-22 00:00:00 70 mm[Hg] [facility] Height 2020-06-22 00:00:00 63 [in_i] Matsabine orda [facility] BMI (Body Mass Index) 2020-06-22 00:00:00 28.9 kg/m2 [facility] BP Systolic 2020-06-22 00:00:00 118 mm[Hg] Abdi paddy [facility] Body Weight 2020-06-22 00:00:00 163 [lb_av] Mat agolamara [facility] BP Diastolic 2020-05-20 00:00:00 66 mm[Hg] Prasanth capellan [facility] Height 2020-05-20 00:00:00 63 [in_i] Prashanth cintron [facility] BMI (Body Mass Index) 2020-05-20 00:00:00 28.1 kg/m2 Cynthia [facility] BP Systolic 2020-05-20 00:00:00 116 mm[Hg] Jin thomason [facility] Body Weight 2020-05-20 00:00:00 158.4 [lb_av] M atagordkoki [facility] Procedures Procedure Date / Time Performed Performing Clinicia n Source ASSIGNMENT OF BENEFITS 2023-06-04 00:30:30 Docto r Unassigned, [place] [facility] NOTICE OF PRIVACY PRACTICES 2023-06-04 00:15:22 Doctor Unassigned, [place] [facility] CONSENT/REFUSAL FOR DIAGNOSIS AND TREATMENT 2023-06-04 00:14:27 Doctor Unassigned, [place] [facility] POCT URINALYSIS W/O SPECIFIC GRAVITY 2021-08-20 00:00:00 Andre Ott [facility] Plan of Care Planned Activity Planned Date Details Comments Source Diagnostic Test Pending 2020-06-22 00:00:00 test, urine [code = test, urine] [facility] Encounters Start Date/Time End Date/Time Encounter Type Admission Type Attending Clinicians Care Facility Care Department Encounter ID Source 2024-04-02 00:00:00 2024-04-02 12:16:00 Telephone Camilla Paredes [facility] 1.2.840.114 350.1.13.10 4.2.7.2.[id number] [facility] 2024-03-18 14:56:53 2024-03-18 14:56:53 Outpatient SFA SFA [id number] Schuyler Jewell Jero 2023-11-17 00:00:00 2023-11-17 00:00:00 Telephone Andre Ott [facility] 1.2.840.114 350.1.13.10 4.2.7.2.[id number] [facility] 2023-08-04 00:00:00 2023-08-04 00:00:00 Telephone ViktorFidelia quinn [facility] 1.2.840.114 350.1.13.10 4.2.7.2.[id number] [facility] 2023-08-01 00:00:00 2023-08-01 00:00:00 Telephone NicholasFidelia zuniga [facility] 1.2.840.114 350.1.13.10 4.2.7.2.[id number] [facility] 2023-07-21 09:00:00 2023-07-21 09:00:00 Outpatient R DEE DANIELS [facility] [id number] [facility] 2023-06-03 19:23:00 2023-06-03 19:27:00 Emergency X EVONNE HARMON [facility] E[facility] [id number] [facility] 2023-06-03 19:23:00 2023-06-03 19:27:00 Emergency OsorioBrandi oliveiraala [facility] ..840.114 350.1.13.10 4.2.7.2.[id number] [facility] 2023-05-30 00:00:00 2023-05-30 00:00:00 Telephone Dee Daniels [facility] 1.2.840.114 350.1.13.10 4.2.7.2.[id number] [facility] 2023-04-20 00:00:00 2023-04-20 00:00:00 Telephone Vicente Fidelia [facility] 1.2840.114 350.1.13.10 4.2.7.2.[id number] [facility] 2022-11-19 13:20:00 2022-11-19 13:20:00 Outpatient R OMAR MONTEJO [facility] [id number] [facility] 2022-11-16 15:00:00 2022-11-16 15:00:00 [id number] 2022-11-14 14:00:00 2022-11-14 14:00:00 Outpatient Kai MAURICIO [facility] [id number] [facility] 2022-09-27 00:00:00 2022-09-27 00:00:[address] [facility] 1.840.114 350.1.13.10 4.2.7.2.[id number] [facility] 2022-02-18 00:00:00 2022-02-18 00:00:[address] [facility] 1.2840.114 350.1.13.10 4.2.7.2.[id number] [facility] 2021-10-15 15:15:00 2021-10-15 15:15:00 Outpatient R ANDRE OTT [facility] [id number] [facility] 2021-10-12 00:00:00 2021-10-12 00:00:00 Telephone Tru Andre [facility] 1.2840.114 350.1.13.10 4.2.7.2.[id number] [facility] 2021-10-06 15:30:00 2021-10-06 15:30:00 Outpatient R ANDRE OTT [facility] [id number] [facility] 2021-09-13 00:00:00 2021-09-13 00:00:00 Telephone Andre Ott [facility] 1.2.840.114 350.1.13.10 4.2.7.2.[id number] [facility] 2021-09-10 00:00:00 2021-09-10 00:00:[address] [facility] 1.2.840.114 350.1.13.10 4.2.7.2.[id number] [facility] 2021-09-09 00:00:00 2021-09-09 00:00:[address] [facility] 1.2.840.114 350.1.13.10 4.2.7.2.[id number] [facility] 2021-08-20 11:20:52 2021-08-20 12:44:54 Office Visit Andre Ott [facility] 1.2.840.114 350.1.13.10 4.2.7.2.[id number] [facility] 2021-08-20 11:00:00 2021-08-20 11:00:00 Outpatient R ANDRE OTT [facility] [id number] [facility] 2021-08-13 13:00:00 2021-08-13 13:00:00 Outpatient R ANDRE OTT [facility] [id number] [facility] 2021-08-11 00:00:00 2021-08-11 00:00:00 Telephone Andre Ott [facility] 1.2.840.114 350.1.13.10 4.2.7.2.[id number] [facility] 2021-07-14 11:07:52 2021-07-14 11:22:52 Nurse Visit Nurse, L[facility] Andre Ott [facility] 1..840.114 350.1.13.10 4.2.7.2.[id number] [facility] 2021-07-14 10:30:00 2021-07-14 10:30:00 Outpatient R [facility] [id number] [facility] 2021-06-21 00:00:00 2021-06-21 00:00:00 Telephone Andre Ott [facility] 1.2.840.114 350.1.13.10 4.2.7.2.[id number] [facility] 2021-05-28 13:00:00 2021-05-28 13:00:00 Outpatient R ANDRE OTT [facility] [id number] [facility] 2021-05-21 15:45:00 2021-05-21 15:45:00 Outpatient R ANDRE OTT [facility] [id number] [facility] 2021-04-13 13:15:00 2021-04-13 13:15:00 Outpatient R ANDRE OTT [facility] [id number] [facility] 2021-01-29 00:00:00 2021-01-29 00:00:00 Orders Only Doctor Unassigned, [place] [facility] 1..840.114 350.1.13.10 4.2.7.2.[id number] [facility] 2021-01-12 15:00:00 2021-01-12 15:00:00 Outpatient R ANDRE OTT [facility] [id number] [facility] 2020-10-05 14:45:00 2020-10-05 14:45:00 Outpatient R ANDRE OTT [facility] [id number] [facility] 2020-10-05 00:00:00 2020-10-05 00:00:00 Orders Only Doctor Unassigned, [place] [facility] 1.2.840.114 350.1.13.10 4.2.7.2.[id number] [facility] 2020-07-29 00:00:00 2020-07-29 00:00:00 Orders Only Doctor Unassigned, [place] [facility] 1.2.840.114 350.1.13.10 4.2.7.2.[id number] [facility] 2020-06-22 04:08:00 2020-06-22 04:08:00 Outpatient LISTER_MELI [facility] [id number] [facility] 2020-06-22 00:00:00 2020-06-22 00:00:00 Vicky Layne, CUPOLA OPERATOR: [address], [place] [address] , Ph. [facility] Hindu HOP - [facility] TAILER OUT [id number] [facility] 2020-05-21 11:42:00 2020-05-21 11:42:00 Outpatient LISTER_MELI [facility] 09 [facility] 2020-05-20 06:03:00 2020-05-20 06:03:00 Outpatient LISTER_MELI [facility] 08 [facility] 2020-05-20 00:00:00 2020-05-20 00:00:00 Vicky Layne, CUPOLA OPERATOR: [address], [place] [address] , Ph. [facility] - [facility] TAILER OUT BC [id number] [facility] 2020-02-18 05:44:00 2020-02-18 05:44:00 Outpatient Cosmo [facility] [id number] [facility] Results Test Description Test Time Test Comments Results Result Co mments Source [facility] Notes Date/Time Note Provider Source 2024-04-02 12:08:50 Spoke to pt regarding control. Pt was informed that per Dr. Ott's note, Dr. Camacho inserted Nexplanon 07/2020 and 07/2023. Pt asked if nexplanon was still working as a contraceptive even if it's passed expiration date. Infomred pt that the nexplanon may not be effective for contraceptive purposes due to being passed the 3 year reyna. Pt is wanting nexplanon removed, but does not want a new nexplanon inserted. Pt stated she does not have insurance currently, informed her that she will then have to pay out of pocket for nexplanon removal. Offered to schedule appt for removal, pt declined due to being at work. Pt stated she will call back to schedule appt. Pt informed she can then inquire about costs and was also informed costs will be due at the time of check in. Pt verbalized understanding. Ruby Conway MA [facility] 2024-04-02 12:02:06 Pt wants to know when she got bc inserted. Patti Angulo [facility] 2023-11-20 08:58:52 Attempted to call patient and left voice mail to see if wanting to schedule a consult for nexplanon removal. 2nd attempt. ECTRIC TESTING MACHINE OPERATOR Adebayo Javed [facility] 2023-11-17 13:50:36 Called pt no answer left voicemail in regards to scheduling appointment for next available. ECTRIC TESTING MACHINE OPERATOR Maru Cook [facility] 2023-11-17 13:10:16 Candice Lyle is a 23 year old female that is requesting an appt for nexplanon removal. Please advise. T Batista [facility] 2023-08-01 15:20:58 Formatting of this n ote might be different from the original. Spoke with patient. Patient wanting to know if her nexplanon is still effective in preventing if it is . Patient advised it will not prevent once it is . Patient given self pay dey of nexplanon removal. Patient verbalized understanding and she will contact clinic to schedule. Duncan Levine RN 08/01/2023 3:24 PM Duncan Levine RN [facility] 2023-08-01 15:13:08 Formatting of this n ote might be different from the original. Attempted to contact patient. No answer, VM left. Duncan Levine RN 08/01/2023 3:13 PM T [facility] 2023-08-01 13:09:37 Formatting of this n ote might be different from the original. Attempted to contact patient. No answer, VM left. Patient is not protected since Nexplanon is . Patient needs appointment for removal. Duncan Levine RN 08/01/2023 1:10 PM [facility] 2023-08-01 12:00:41 Formatting of this n ote might be different from the original. Patient states her nexplanon on 07/28/2023. She wants to know if she is still protected and is requesting a call back. Hazel Jacinto [facility] 2023-06-03 19:22:54 Formatting of this n ote might be different from the original. Pt seen by Provider in triage and pt was medical screen. Pt ambulated to the lobby with steady gait [facility] 2023-06-03 19:17:35 Formatting of this n ote might be different from the original. Pt want her control implant check in the left upper because it started hurting yesterday, pt states she had it placed 3 years ago Linda Garcia RN [facility] 2023-06-03 19:14:00 Formatting of this n ote might be different from the original. Medical Screening exam: Candice Lyle is a 22 year old female who presents to the ED due to pain from her nexplanon . It was placed 3 years ago and is due for removal in July of this year. Noticed an ache over it this week. Brief physical exam BP 127/90 | Pulse 94 | Temp 38.1 ?C (100.6 ?F) (Oral) | Resp 18 | Ht 1.651 m (5' 5") | Wt 81.6 kg (180 lb) | SpO2 98% | BMI 29.95 kg/m? Awake alert in no distress Pulse 2+ regular Breath sound eupneic Implant palpable to LUE, no induration , fluctuance, erythema or pain MSE performed , no MEC appreciated referred to Evonne Anand APRN, NP 06/03/231925 Associated attestation - Austen Springer MD - 06/03/2023 8:09 PM CDT Addendum I was personally available for consultation in the Emergency Department during this encounter and patient evaluation by [facility] 2023-05-31 09:15:04 Formatting of this n ote might be different from the original. Returned call to MOP. Given estimate for nexplanon removal/reinsertion. MOP stated she may still be covered under insurance. Advised MOP to return call to update insurance info when she had the ID number. Ronit Ko [facility] 2023-05-30 09:39:05 Formatting of this n ote might be different from the original. Mom is calling she is needing to know how much the nexplanon visit would cost with no insurance. Please call and advise thanks. Jaye Dumont nidhi [facility]
--- NOTE | 2024-07-13 18:38 | RAD REPORT ---
EXAM DESCRIPTION: RAD - Ankle Left 3 View -07/13/2024 6:23 pm CLINICAL HISTORY: Left ankle pain FINDINGS: No fracture or dislocation is seen. No bone or joint abnormality noted Pes planus deformity
[2024-07-13] MEDS ORDERED: ACETAMINOPHEN 500 MG TAB ONE (18:47)
[2024-07-13] MEDS ORDERED: IBUPROFEN 400 MG TAB ONE (19:13)
--- NOTE | 2024-07-13 19:27 | ER ---
Nurse's Notes [facility] Name: Candice Lyle Age: 23 yrs Sex: Female : 2000 Arrival Date: 07/13/2024 Time: 17:35 Bed 11 Private MD: Diagnosis: Achilles tendinitis, left leg Presentation: 07/13 17:59 Chief complaint: Patient states: she started having left foot pain behind her ankle ap3 approx 2 weeks ago. patient reports her pain is currently a 9/10 on the pain scale. Coronavirus screen: At this time, the client does not indicate any symptoms associated with coronavirus-19. Ebola Screen: No symptoms or risks identified at this time. Initial Sepsis Screen: Does the patient meet any 2 criteria? No. Patient's initial sepsis screen is negative. Does the patient have a suspected source of infection? No. Patient's initial sepsis screen is negative. Risk Assessment: Do you want to hurt yourself or someone else? Patient reports no desire to harm self or others. Onset of symptoms is unknown. 17:59 Method Of Arrival: Ambulatory ap3 17:59 Acuity: BARTOLOME 4 ap3 Triage Assessment: 18:00 General: Appears in no apparent distress. Behavior is calm, cooperative, appropriate ap3 for age. Pain: Complains of pain in left Achilles Pain currently is 9 out of 10 on a pain scale. Neuro: Level of Consciousness is awake, alert, obeys commands, Oriented to person, place, time, situation, Appropriate for age. Cardiovascular: Patient's skin is warm and dry. Respiratory: Airway is patent Respiratory effort is even, unlabored, Respiratory pattern is regular, symmetrical. CHALKER SOLES: 20:08 LMP N/A - , Not ap3 Historical: - Allergies: 18:00 No Known Allergies; ap3 - Home Meds: 18:00 None [Active]; ap3 - PMHx: 18:00 None; ap3 - Immunization history:: Client reports receiving the 2nd dose of the Covid vaccine. - Infectious Disease History:: Denies. - Social history:: Smoking status: Patient denies any tobacco usage or history of. Screenin:01 [facility] ED Fall Risk Assessment (Adult) History of falling in the last 3 months, ap3 including since admission No falls in past 3 months (0 pts) Confusion or Disorientation No (0 pts) Intoxicated or Sedated No (0 pts) Impaired Gait No (0 pts) Mobility Assist Device Used No (0 pt) Altered Elimination No (0 pt) Score/Fall Risk Level 0 - 2 = Low Risk Oriented to surroundings, Maintained a safe environment, Educated pt \T\ family on fall prevention, incl call for assistance when getting out of bed, Assessed \T\ reinforced patient's understanding of fall precautions, Hourly rounding (assess needs \T\ fall precautionary measures) done, Used ambulatory aids as needed (educated on \T\ assisted with), Used gait belt as appropriate. Abuse screen: Denies threats or abuse. Nutritional screening: No deficits noted. Tuberculosis screening: No symptoms or risk factors identified. Vital Signs: 17:59 BP 127 / 80; Pulse 76; Resp 17; Temp 98.2; Pulse Ox 100% ; Weight 79.38 kg; Height 5 ap3 ft. 3 in. ; Pain 9/10; 17:59 Body Mass Index 31.00 (79.38 kg, 160.02 cm) ap3 17:59 Pain Scale: Adult ap3 ED Course: 17:40 Patient arrived in ED. im 17:49 Jeff Aquino PA is PHCP. cp 17:49 Jhonathan Tapia MD is Attending Physician. cp 18:00 Triage completed. ap3 18:01 Arm band placed on right wrist. ap3 18:25 XRAY Ankle LEFT 3 view In Process Unspecified. EDMS 18:49 Adilia Lee, DANGELO is Primary Nurse. ld1 19:25 Erik De Anda MD is Referral Physician. cp 20:08 Patient has correct armband on for positive identification. Call light in reach. Side ap3 rails up X 1. Provided Education on: discharge instructions . 20:08 No provider procedures requiring assistance completed. Patient did not have IV access ap3 during this emergency room visit. Administered Medications: 18:49 Drug: Acetaminophen PO 1000 mg PO once Route: PO; ld1 19:57 Follow up: Response: No adverse reaction; Pain is decreased ap3 19:15 Drug: Ibuprofen PO 800 mg PO once Route: PO; ld1 19:57 Follow up: Response: No adverse reaction; Pain is decreased ap3 Medication: 20:08 VIS not applicable for this client. ap3 Outcome: 19:26 Discharge ordered by . cp 20:08 Discharged to home ambulatory, ap3 20:08 Condition: good 20:08 Discharge instructions given to patient, Instructed on discharge instructions, follow up and referral plans. Demonstrated understanding of instructions, follow-up care, medications, Prescriptions given X 1, 20:09 Patient left the ED. ap3 Signatures: Dispatcher [employer] EDMS Jeff Aquino PA PA cp Prokisch, Amanda, RN RN ap3 Adilia Lee RN RN ld1 Macie Hernadez
--- NOTE | 2024-07-13 19:27 | EDPHYS ---
Physician Documentation [facility] Name: Candice Lyle Age: 23 yrs Sex: Female : 2000 Arrival Date: 07/13/2024 Time: 17:35 Bed 11 Private MD: ED Physician Jhonathan Tapia HPI: 07/13 18:10 This 23 yrs old Black Female presents to ER via Ambulatory with complaints of Foot Pain.cp 18:10 The patient presents with pain, that is acute. The complaints affect the left heel and cp left ankle. Context: resulted from an unknown cause. Onset: The symptoms/episode began/occurred 2 week(s) ago. 18:10 Associated signs and symptoms: The patient has no apparent associated signs or cp symptoms. Treatment prior to arrival includes: no previous treatment. 18:10 Modifying factors: the symptoms are aggravated by weight bearing. 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 - Infectious Disease History:: Denies. - Social history:: Smoking status: Patient denies any tobacco usage or history of. ROS: 18:15 MS/extremity: Positive for pain, of the left Achilles and left ankle, Negative for cp injury or acute deformity, decreased range of motion, paresthesias, 18:15 Constitutional: Negative for body aches, chills, fever, poor PO intake, cp 18:15 Cardiovascular: Negative for chest pain, 18:15 Respiratory: Negative for cough, shortness of breath, wheezing, 18:15 Back: Negative for pain at rest, pain with movement, 18:15 Skin: Negative for rash, 18:15 Neuro: Negative for numbness, tingling, 18:15 All other systems are negative, Exam: 18:20 Constitutional: The patient appears in no acute distress, alert, awake, non-toxic, well cp developed, well nourished, 18:20 Head/Face: Normocephalic, atraumatic. cp 18:20 Chest/axilla: Inspection: normal, 18:20 Cardiovascular: Rate: normal, Pulses: Pulses are 2+ in left dorsalis pedis artery. Edema: is not appreciated, 18:20 Respiratory: the patient does not display signs of respiratory distress, Respirations: normal, no use of accessory muscles, no retractions, labored breathing, is not present, 18:20 Back: pain, is absent, ROM is normal, 18:20 Musculoskeletal/extremity: Extremities: noted in the left Achilles: pain, tenderness, There is no evidence of rupture, ROM: full active range of motion, in the left ankle, the left foot Sensation intact. Vital Signs: 17:59 BP 127 / 80; Pulse 76; Resp 17; Temp 98.2; Pulse Ox 100% ; Weight 79.38 kg; Height 5 ap3 ft. 3 in. ; Pain 9/10; 17:59 Body Mass Index 31.00 (79.38 kg, 160.02 cm) ap3 17:59 Pain Scale: Adult ap3 MDM: 18:02 Patient medically screened. 18:30 Differential diagnosis: contusion, tendonitis, fracture, dislocation, septic joint. 19:25 Data reviewed: vital signs, nurses notes, radiologic studies, plain films, and as a cp result, I will discharge patient. 19:25 I considered the following discharge prescriptions or medication management in the emergency department Medications were administered in the Emergency Department. See MAR. Independent interpretation of the following test(s) in the Emergency Department X-Ray: My interpretation is images of left ankle negative for fracture. Counseling: I had a detailed discussion with the patient and/or guardian regarding the historical points, exam findings, and any diagnostic results supporting the discharge/admit diagnosis, radiology results, to return to the emergency department if symptoms worsen or persist or if there are any questions or concerns that arise at home. Response to treatment: the patient's symptoms have mildly improved after treatment, and as a result, I will discharge patient. 07/13 18:05 Order name: XRAY Ankle LEFT 3 view; Complete Time: 18:59 cp 07/13 18:59 Interpretation: Report reviewed. 07/13 18:59 Order name: Walking boot; Complete Time: 19:57 cp Administered Medications: 18:49 Drug: Acetaminophen PO 1000 mg PO once Route: PO; ld1 19:57 Follow up: Response: No adverse reaction; Pain is decreased ap3 19:15 Drug: Ibuprofen PO 800 mg PO once Route: PO; ld1 19:57 Follow up: Response: No adverse reaction; Pain is decreased ap3 Disposition Summary: 07/13/24 19:26 Discharge Ordered Notes: Location: Home cp Problem: new cp Symptoms: have improved cp Condition: Stable cp Diagnosis - Achilles tendinitis, left leg cp Followup: cp - With: Erik De Anda MD - When: 1 week - Reason: Recheck today's complaints Discharge Instructions: - Discharge Summary Sheet cp - Achilles Tendinitis cp Forms: - Medication Reconciliation Form cp - Antibiotic Education cp - Prescription Opioid Use cp - Patient Portal Instructions cp - Leadership Thank You Letter cp - Work release form hb Prescriptions: - Ibuprofen 800 mg Oral Tablet - take 1 tablet ORAL route every 8 hours As needed take with food; 30 tablet; cp Refills: 0, Product Selection Permitted Addendum: 07/15/2024 09:01 Co-signature as Attending Physician, Jhonathan Tapia MD I reviewed the patient's care r t provided by the Advanced Practice Provider and agree with the diagnosis and treatment plan. Signatures: Dispatcher [employer] EDJeff Jimenez PA PA cp Yolande Oconnor RN RN ap3 Adilia Lee RN RN ld1 Jhonathan Tapia MD MD rt
[2024-07-13 20:13] VITALS: BP 127/80; TEMP 98.2; O2SAT 100
== END 2024-07-13 20:09 | disposition home or self-care (01) ==
LOC: ER 17:35
DX: M76.62 Achilles tendinitis, left leg (principal)
CPT/HCPCS: 99283

== ENCOUNTER 2025-01-03 11:52 | Emergency (ER) | payer OTHER ==
--- OUTSIDE RECORDS SUMMARY | 2025-01-03 11:54 | XMS REPORT | Continuity of Care Document ---
Author Name Unknown Address [address] [facility] [place] [address] [facility] thconnect Address [address] [facility] [place] [address] Care Team Providers Care Machinist Brake Name Role Phone Pcp, Patient Does Not Have A Primary Care Physic ruben No, PCP Attending Clinician Unavailable NEVA BULL Attending Clinician Unavailable NEVA BULL Attending Clinician Unavailable Doctor Unassigned, [facility] Attending Clinician U Neva West MD Attending Clinician [phone], [facility] Attending Clinician Unavailable LUIS ALBERTO LEON Attending Clinician Unavailable Luis Alberto Leon DNP Attending Clinician [phone] MARCUS KERR Attending Clinician MARCUS Arnold Attending Clinician Andre Barcenas MD Attending Clinician Unavailable Janette Zhang PA-C Attending Clinician [phone] DEE DANIELS Attending Clinician Unavailable EMELINA HARMON Attending Clinician Unavailable Emelina Harmon NP Attending Clinician [phone] Dee Daniels MD Attending Clinician [phone] UNKNOWN, ATTENDING Attending Clinician UnavailJANETTE Hassan Attending Clinician Unavailable ANDRE OTT Attending Clinician Unavailable Nurse, [facility] Attending Clinician Unavailable Doctor Unassigned, [place] Attending Clinician U luz KU Attending Clinician Unavailable Cosmo Attending Clinician Unavailable ELMIRA Admitting Clinician Unavailable Cosmo Admitting Clinician Unavailable Payers Payer Name Policy Type Policy Number Effective Date Expirati on Date Source [place] [employer] [id number] 2024 00[place] [id number] 2019 00:00:00 [facility] (MEDICAID HMO) [id number] Problems Condition Name Condition Details Condition Category Status Onset Date Resolution Date Last Treatment Date Treating Clinician Comments Source Obesity during Obesity during Disease Active 2023-11 00:00: 00 [facility] Anxiety and depression Anxiety and depression Disease Active 2023-11 00:00: 00 [facility] Obesity (BMI 30-39.9) Obesity (BMI 30-39.9) Disease Active 2020-11 0 00:00: 00 [facility] Anxiety Anxiety Problem Active 05-20 00:00: 00 [facility] Depressive disorder Depressive Disorder Problem Active 05-20 00:00: 00 [facility] Atopic dermatitis and related condition Atopic dermatitis and related condition Disease Active 01-22 00:00: 00 Overview: Formattin g of this note might be different from the original. ICD10 Diagnosis Term Design Intern Utility [facility] Need for HPV vaccinatio n Need for HPV vaccinatio n Disease Resolve d 04-13 00:00: 00 2024-12-06 00:00:00 2024-12-06 15:36:46 [facility] Breakthrou gh bleeding on Nexplanon Breakthrou gh bleeding on Nexplanon Disease Resolve d 04-13 00:00: 00 2024-11-07 00:00:00 2024-11-07 18:28:05 [facility] Vaginal discharge Vaginal discharge Disease Resolve d 04-13 00:00: 00 2024-11-07 00:00:00 2024-11-07 18:28:06 [facility] Allergies, Adverse Reactions, Alerts Allergy Name Allergy Type Status Severity Reaction(s) Onset Date Inactive Date Treating Clinician Comments Source NO KNOWN ALLERGIE S Drug Class Active [facility] Social History Social Habit Start Date Stop Date Quantity Comments Source ASSERTION 2024-08-25 00:00:00 [facility] Gender identity [facility] History SDOH Alcohol Std Drinks [facility] History SDOH Alcohol Binge [facility] Exposure to SARS-CoV-2 (event) Not sure [facility] History SDOH Alcohol Comment [place] [facility] History of Social function 2024-12-27 00:00:00 2024-12-27 00:00:00 [facility] Alcoholic beverage intake 2024-12-06 00:00:00 2024-12-06 00:00:00 Lifetime non-drinker (finding) [facility] Tobacco use and exposure 2024-11-07 00:00:00 2024-11-07 00:00:00 Smokeless tobacco non-user [facility] Alcohol intake 2021-08-20 00:00:00 2021-08-20 00:00:00 Lifetime non-drinker (finding) [facility] History SDOH Alcohol Frequency 2020-10-05 00:00:00 2020-10-05 00:00:00 1 [facility] Sex assigned at 2002 00:00:00 2000 00:00:00 [facility] Smoking Status Start Date Stop Date Source Never smoked tobacco [facility] Medications Ordered Medication Name Filled Medication Name Start Date Stop Date Current Medication? Ordering Clinician Indication Dosage Frequency Signature (SIG) Comments Components Source Vit Comb.10-Iro n-FA 65-1 mg Tab 12-06 15:07: 21 Yes Take by mouth. [facility] metroNIDAZO LE 0.75 % (37.5mg/5 gram) vaginal gel 1- 00:00: 00 12-27 00:00 :00 No 1{appli cator} Insert 1 Applicator into vagina at bedtime. [facility] metroNIDAZO LE 500 mg tablet 2024-1 2-27 00:00: 00 11-16 05:59 :00 Yes [id number] 500mg Take 1 tablet by mouth every 12 (twelve) hours for 7 days. [facility] Nitrofurant oin&Nit. Macrocryst (MACROBID) 100 mg capsule 2020-11 0 00:00: 00 08-26 04:59 :00 No [id number] 100mg Take 1 capsule by mouth 2 (two) times daily for 5 days. [facility] escitalopra m oxalate (LEXAPRO) 10 mg tablet 04-13 13:52: 23 12-27 00:00 :00 No 10mg Take 1 tablet by mouth in the morning. [facility] norgestimat e-ethinyl estradioL 0.25-35 mg-mcg per tablet 04-13 00:00: 00 11-07 00:00 :00 No [id number] 1{tbl} Take 1 tablet by mouth daily. [facility] etonogestre L 68 mg implant 2019-11 15:13: 36 11-07 00:00 :00 No 68mg 68 mg by Subdermal route once now. [facility] fluticasone (CUTIVATE) 0.05 % cream 01-22 00:00: 00 11-07 00:00 :00 No [id number] Apply to area(s) 2 (two) times daily. [facility] Mirena 20 mcg/24 hours (5 yrs) 52 mg intrauterin e device Take 1 device by intrauterin e route. Mirena 20 mcg/24 hours (5 yrs) 52 mg intrauterin e device Take 1 device by intrauterin e route. No Mirena 20 mcg/24 hours (5 yrs) 52 mg intrauteri ne device Take 1 device by intrauteri ne route. Iram armenta [facility] Immunizations Ordered Immunization Name Filled Immunization Name Date Status Comments Source HPV9 2021-07-14 00:00:00 Completed [facility] HPV9 2021-07-14 00:00:00 Completed [facility] HPV9 2021-07-14 00:00:00 Completed [facility] HPV9 2021-07-14 00:00:00 Completed [facility] HPV9 2021-07-14 00:00:00 Completed [facility] HPV9 2021-07-14 00:00:00 Completed [facility] HPV9 2021-07-14 00:00:00 Completed [facility] HPV9 2021-07-14 00:00:00 Completed [facility] HPV9 2021-07-14 00:00:00 Completed [facility] HPV9 2021-07-14 00:00:00 Completed [facility] HPV9 2021-07-14 00:00:00 Completed [facility] HPV9 2021-07-14 00:00:00 Completed [facility] HPV9 2021-04-13 00:00:00 Completed [facility] HPV9 2021-04-13 00:00:00 Completed [facility] HPV9 2021-04-13 00:00:00 Completed [facility] HPV9 2021-04-13 00:00:00 Completed [facility] HPV9 2021-04-13 00:00:00 Completed [facility] HPV9 2021-04-13 00:00:00 Completed [facility] HPV9 2021-04-13 00:00:00 Completed [facility] HPV9 2021-04-13 00:00:00 Completed [facility] HPV9 2021-04-13 00:00:00 Completed [facility] HPV9 2021-04-13 00:00:00 Completed [facility] HPV9 2021-04-13 00:00:00 Completed [facility] HPV9 2021-04-13 00:00:00 Completed [facility] HPV9 Unknown Completed [facility] HPV9 Unknown Completed [facility] HPV9 Unknown Completed [facility] Vital Signs Vital Name Observation Time Observation Value Comments S ource Systolic blood pressure 2024-12-27 18:31:00 116 mm[Hg] [facility] Diastolic blood pressure 2024-12-27 18:31:00 67 mm[Hg] [facility] Heart rate 2024-12-27 18:31:00 73 /min [facility] Body temperature 2024-12-27 18:31:00 37 Noemi [facility] Respiratory rate 2024-12-27 18:31:00 16 /min [facility] Body height 2024-12-27 18:31:00 160 cm [facility] Body weight 2024-12-27 18:31:00 94.484 kg [facility] BMI 2024-12-27 18:31:00 36.90 kg/m2 [facility] Systolic blood pressure 2024-12-06 21:03:00 119 mm[Hg] [facility] Diastolic blood pressure 2024-12-06 21:03:00 71 mm[Hg] [facility] Heart rate 2024-12-06 21:03:00 82 /min [facility] Body temperature 2024-12-06 21:03:00 36.67 Noemi [facility] Respiratory rate 2024-12-06 21:03:00 18 /min [facility] Body height 2024-12-06 21:03:00 160 cm [facility] Body weight 2024-12-06 21:03:00 91.264 kg [facility] BMI 2024-12-06 21:03:00 35.64 kg/m2 [facility] Systolic blood pressure 2024-11-07 20:55:00 106 mm[Hg] [facility] Diastolic blood pressure 2024-11-07 20:55:00 75 mm[Hg] [facility] Heart rate 2024-11-07 20:55:00 87 /min [facility] Body temperature 2024-11-07 20:55:00 36.72 Noemi [facility] Body height 2024-11-07 20:55:00 160 cm [facility] Body weight 2024-11-07 20:55:00 90.357 kg [facility] BMI 2024-11-07 20:55:00 35.29 kg/m2 [facility] Systolic blood pressure 2023-06-04 00:18:00 127 mm[Hg] [facility] Diastolic blood pressure 2023-06-04 00:18:00 90 mm[Hg] [facility] Heart rate 2023-06-04 00:18:00 94 /min [facility] Body temperature 2023-06-04 00:18:00 38.11 Noemi [facility] Respiratory rate 2023-06-04 00:18:00 18 /min [facility] Body height 2023-06-04 00:18:00 165.1 cm [facility] Body weight 2023-06-04 00:18:00 81.647 kg [facility] BMI 2023-06-04 00:18:00 29.95 kg/m2 [facility] Oxygen saturation in Arterial blood by Pulse oximetry 2023-06-04 00:18:00 98 /min [facility] Systolic blood pressure 2021-08-20 17:02:00 138 mm[Hg] [facility] Diastolic blood pressure 2021-08-20 17:02:00 77 mm[Hg] [facility] Heart rate 2021-08-20 17:02:00 69 /min [facility] Body temperature 2021-08-20 17:02:00 36.94 Noemi [facility] Respiratory rate 2021-08-20 17:02:00 18 /min [facility] Body height 2021-08-20 17:02:00 157.5 cm [facility] Body weight 2021-08-20 17:02:00 75.297 kg [facility] BMI 2021-08-20 17:02:00 30.36 kg/m2 [facility] Body mass index (BMI) [Percentile] Per age and sex 2021-08-20 17:02:00 94.39 % [facility] BP Diastolic 2020-06-22 00:00:00 70 mm[Hg] Prasanth capellan [facility] Height 2020-06-22 00:00:00 63 [in_i] Prashanth villafanaa [facility] BMI (Body Mass Index) 2020-06-22 00:00:00 28.9 kg/m2 Cynthia [facility] BP Systolic 2020-06-22 00:00:00 118 mm[Hg] Jin thomason [facility] Body Weight 2020-06-22 00:00:00 163 [lb_av] Prasanth capellan [facility] BP Diastolic 2020-05-20 00:00:00 66 mm[Hg] Prasanth capellan [facility] Height 2020-05-20 00:00:00 63 [in_i] Prashanth cintron [facility] BMI (Body Mass Index) 2020-05-20 00:00:00 28.1 kg/m2 Cynthia [facility] BP Systolic 2020-05-20 00:00:00 116 mm[Hg] Jin thomason [facility] Body Weight 2020-05-20 00:00:00 158.4 [lb_av[facility] Procedures Procedure Date / Time Performed Performing Clinician Source POCT URINALYSIS W/O SPECIFIC GRAVITY 2024-12-27 18:21:00 Neva Bull [facility] SCANNED LAB RESULTS 2024-12-19 18:32:14 Doctor Gasper justice, Gratz [facility] POCT URINALYSIS W/O SPECIFIC GRAVITY 2024-12-06 21:09:00 Luis Alberto Leno [facility] URINE DRUG (IMMUNOASSAY) - COMPREHENSIVE DRUG SCREEN 2024-11-07 21:51:00 Neva Bull [facility] ASSIGNMENT OF BENEFITS 2023-06-04 00:30:30 Docto r Unassigned, [place] [facility] NOTICE OF PRIVACY PRACTICES 2023-06-04 00:15:22 Doctor Unassigned, Gr[place] [facility] CONSENT/REFUSAL FOR DIAGNOSIS AND TREATMENT 2023-06-04 00:14:27 Doctor Unassigned, Gratz [facility] POCT URINALYSIS W/O SPECIFIC GRAVITY 2021-08-20 00:00:00 Andre Ott [facility] Plan of Care Planned Activity Planned Date Details Comments Source Diagnostic Test Pending 2020-06-22 00:00:00 test, urine [code = test, urine] [place] [facility] Encounters Start Date/Time End Date/Time Encounter Type Admission Type Attending Clinicians Care Facility Care Department Encounter ID Source 2024-12-23 16:54:00 Outpatient No, PCP [facility] [id number] [place] [facility] 2025-01-24 11:30:00 2025-01-24 11:30:00 Outpatient R BULLNEVA ML NEVA [facility] [id number] [facility] 2025-01-09 13:00:00 2025-01-09 13:00:00 Outpatient P [facility] [id number] [facility] 2024-12-19 00:00:00 2024-12-28 06:09:42 Orders Only Doctor Unassigned, [place] Doctor Unassigned, Gratz [facility] 1..114 350.1.13.10 4.2.7.2.686 [id number] [facility] 2024-12-27 12:15:00 2024-12-27 12:41:20 Outpatient R NEVA BULL ML NEVA [facility] [id number] [facility] 2024-12-27 12:15:00 2024-12-27 12:41:20 Routine Visit Neva Bull [facility] 1..114 350.1.13.10 4.2.7.2.686 [id number] 134 [id number] [facility] 2024-12-24 00:00:00 2024-12-24 17:18:37 Telephone Neva Bull [facility] 1..114 350.1.13.10 4.2.7.2.686 [id number] 134 [id number] [facility] 2024-12-19 00:00:00 2024-12-19 14:12:07 Telephone Neva Bull [facility] 1.0.114 350.1.13.10 4.2.7.2.686 [id number] 134 [id number] [facility] 2024-12-19 00:00:00 2024-12-19 11:21:47 Patient Secure Msg Doctor Unassigned, Gratz Doctor Unassigned, Gratz [facility] 1.2.840.114 350.1.13.10 4.2.7.2.686 [id number] 134 [id number] [facility] 2024-12-17 00:00:00 2024-12-18 12:10:35 Patient Secure Msg Doctor Unassigned, Gratz Doctor Unassigned, Gratz [facility] 1.2.840.114 350.1.13.10 4.2.7.2.686 [id number] [facility] 2024-12-17 00:00:00 2024-12-17 15:58:26 Telephone Neva Bull [facility] 1.2.840.114 350.1.13.10 4.2.7.2.686 [id number] 134 [id number] [facility] 2024-12-15 00:00:00 2024-12-17 15:47:55 Patient Secure Msg Neva Bull [facility] 1.2840.114 350.1.13.10 4.2.7.2.686 [id number] 134 [id number] [facility] 2024-12-10 09:00:00 2024-12-10 10:42:20 Outpatient R NEVA BULL VIEN [facility] [id number] [facility] 2024-12-10 09:00:00 2024-12-10 09:15:00 Ip Counsel Visit 2, Adc Lab Neva Bull 2, Adc Lab [facility] 1.2.840.114 350.1.13.10 4.2.7.2.686 [id number] [facility] 2024-12-06 15:00:00 2024-12-06 15:26:14 Outpatient R LUIS ALBERTO LEON [facility] [id number] [facility] 2024-12-06 15:00:00 2024-12-06 15:26:14 Routine Visit Luis Alberto Leon [facility] 1.2.840.114 350.1.13.10 4.2.7.2.686 [id number] 134 [id number] [facility] 2024-11-15 00:00:00 2024-11-15 12:17:[address] [facility] 1.2.840.114 350.1.13.10 4.2.7.2.686 [id number] 134 [id number] [facility] 2024-11-08 00:00:00 2024-11-08 17:43:07 Case Management Ml Neva John [facility] 1.2.840.114 350.1.13.10 4.2.7.2.686 [id number] 134 [id number] [facility] 2024-11-07 14:30:00 2024-11-07 15:35:48 Outpatient R NEVA BULL VIEN [facility] [id number] [facility] 2024-11-07 14:30:00 2024-11-07 15:35:48 Initial Visit Ml Neva John [facility] 1.2.840.114 350.1.13.10 4.2.7.2.686 [id number] 134 [id number] [facility] 2024-10-30 14:30:00 2024-10-30 14:30:00 Outpatient R NEVA BULL [facility] [id number] [facility] 2024-10-23 00:00:00 2024-10-23 10:11:20 Telephone Neva Bull [facility] 1.2.840.114 350.1.13.10 4.2.7.2.686 [id number] 134 [id number] [facility] 2024-08-20 09:00:00 2024-08-20 09:00:00 Outpatient R CEASAR-NARESH S, MARCUS CEASAR-NARESH S, MARCUS [facility] [id number] [facility] 2024-04-02 00:00:00 2024-04-02 12:16:00 Telephone Neva Bull [facility] 1.2.840.114 350.1.13.10 4.2.7.2.686 [id number] 134 [id number] [facility] 2024-03-18 14:56:53 2024-03-18 14:56:53 [facility]patient [facility] [id number] Schuyler Nogueira 2023-11-17 00:00:00 2023-11-17 00:00:00 Telephone Andre Ott [facility] 1.2.840.114 350.1.13.10 4.2.7.2.686 [id number] 134 [id number] [facility] 2023-08-04 00:00:00 2023-08-04 00:00:00 Telephone Viktorkai Janette [facility] 1.2.840.114 350.1.13.10 4.2.7.2.686 [id number] 134 [id number] [facility] 2023-08-01 00:00:00 2023-08-01 00:00:00 Telephone Janette Zhang [facility] 1.2.840.114 350.1.13.10 4.2.7.2.686 [id number] 134 [id number] [facility] 2023-07-21 09:00:00 2023-07-21 09:00:00 Outpatient R ANIBALDEE PHAN [facility] [id number] [facility] 2023-06-03 19:23:00 2023-06-03 19:27:00 Emergency X EMELINA HARMON [facility] ERT [id number] [facility] 2023-06-03 19:23:00 2023-06-03 19:27:00 Emergency Emelina Harmon [facility] 1.840.114 350.1.13.10 4.2.7.2.686 [id number] [facility] 2023-05-30 00:00:00 2023-05-30 00:00:00 Telephone AnibalDee phan [facility] 1.2.840.114 350.1.13.10 4.2.7.2.686 [id number] 134 [id number] [facility] 2023-04-20 00:00:00 2023-04-20 00:00:00 Telephone Vicente Janette [facility] 1.84.114 350.1.13.10 4.2.7.2.686 [id number] 134 [id number] [facility] 2022-11-19 13:20:00 2022-11-19 13:20:00 Outpatient R NIKIA, OMAR [facility] [id number] [facility] 2022-11-16 15:00:00 2022-11-16 15:00:00 Outpatient JANETTE WEBER [facility] [id number] [facility] 2022-11-14 14:00:00 2022-11-14 14:00:00 Outpatient JANETTE WEBER [facility] [id number] [facility] 2022-09-27 00:00:00 2022-09-27 00:00:00 Telephone Andre Ott [facility] 1.84.114 350.1.13.10 4.2.7.2.686 [id number] 134 [id number] [facility] 2022-02-18 00:00:00 2022-02-18 00:00:00 Telephone Andre Ott [facility] 1.2840.114 350.1.13.10 4.2.7.2.686 [id number] 134 [id number] [facility] 2021-10-15 15:15:00 2021-10-15 15:15:00 Outpatient R ANDRE OTT [facility] [id number] [facility] 2021-10-12 00:00:00 2021-10-12 00:00:00 Telephone Tru Andre [facility] 1.2840.114 350.1.13.10 4.2.7.2.686 [id number] 134 [id number] [facility] 2021-10-06 15:30:00 2021-10-06 15:30:00 Outpatient R ANDRE OTT [facility] [id number] [facility] 2021-09-13 00:00:00 2021-09-13 00:00:00 Telephone Tru Andre [facility] 1.2840.114 350.1.13.10 4.2.7.2.686 [id number] [facility] 2021-09-10 00:00:00 2021-09-10 00:00:00 Telephone Andre Ott [facility] 1.2840.114 350.1.13.10 4.2.7.2.686 [id number] 134 [id number] [facility] 2021-09-09 00:00:00 2021-09-09 00:00:00 Telephone Andre Ott [facility] 1.2.840.114 350.1.13.10 4.2.7.2.686 [id number] 134 [id number] [facility] 2021-08-20 11:20:52 2021-08-20 12:44:54 Office Visit Andre Ott [facility] 1.2.840.114 350.1.13.10 4.2.7.2.686 [id number] 134 [id number] [facility] 2021-08-20 11:00:00 2021-08-20 11:00:00 Outpatient R ANDRE OTT [facility] [id number] [facility] 2021-08-13 13:00:00 2021-08-13 13:00:00 Outpatient R ANDRE OTT [facility] [id number] [facility] 2021-08-11 00:00:00 2021-08-11 00:00:00 Telephone Andre Ott [facility] 1.2840.114 350.1.13.10 4.2.7.2.686 [id number] 134 [id number] [facility] 2021-07-14 11:07:52 2021-07-14 11:22:52 Nurse Visit Nurse, [facility] Tru Andre [facility] 1.2840.114 350.1.13.10 4.2.7.2.686 [id number] 134 [id number] [facility] 2021-07-14 10:30:00 2021-07-14 10:30:00 Outpatient R [facility] [id number] [facility] 2021-06-21 00:00:00 2021-06-21 00:00:00 Telephone Tru Andre [facility] 1.2840.114 350.1.13.10 4.2.7.2.686 [id number] 134 [id number] [facility] 2021-05-28 13:00:00 2021-05-28 13:00:00 Outpatient R EARLINE OTTN [facility] [id number] [facility] 2021-05-21 15:45:00 2021-05-21 15:45:00 Outpatient ANDRE GALEANA [facility] [id number] [facility] 2021-04-13 13:15:00 2021-04-13 13:15:00 Outpatient ANDRE GALEANA [facility] [id number] [facility] 2021-01-29 00:00:00 2021-01-29 00:00:00 Orders Only Doctor Unassigned, [place] [id number] 350.1.13.10 4.2.7.2.686 [id number] [facility] 2021-01-12 15:00:00 2021-01-12 15:00:00 Outpatient ANDRE GALEANA [facility] [id number] [facility] 2020-10-05 14:45:00 2020-10-05 14:45:00 Outpatient Kai OTT ANDRE [facility] [id number] [facility] 2020-10-05 00:00:00 2020-10-05 00:00:00 Orders Only Doctor Unassigned, Gratz [place] [id number] 350.1.13.10 4.2.7.2.686 [id number] [facility] 2020-07-29 00:00:00 2020-07-29 00:00:00 Orders Only Doctor Unassigned, Gratz [facility] 1.2.840.114 350.1.13.10 4.2.7.2.686 [id number] [facility] 2020-06-22 04:08:00 2020-06-22 04:08:00 Outpatient RJ HOWARD [facility] 809 [facility] 2020-06-22 00:00:00 2020-06-22 00:00:00 Vicky Layne, LEHR OPERATOR: [address] [place] [address] , Ph. [facility] [place] [facility] [id number] [facility] 2020-05-21 11:42:00 2020-05-21 11:42:00 Outpatient LIZET_JOSELUISI [facility] 09 [facility] 2020-05-20 06:03:00 2020-05-20 06:03:00 Outpatient LISTER_MELI [facility] [id number] [facility] 2020-05-20 00:00:00 2020-05-20 00:00:00 Vicky Layne, LEHR OPERATOR: [address], [place] [address] , Ph. [facility] [place] [facility] - [facility] [employer] L[employer]ER [id number] [facility] 2020-02-18 05:44:00 2020-02-18 05:44:00 Outpatient Cosmo MMG MMG [id number] [facility] Results Test Description Test Time Test Comments Results Result Co mments Source [facility] [id number] 18:32:14Ordered by an unspecified provider.[facility] w/o Specific [id number] 21:10:00* Test Item Value Reference Range Interpretation Comme nts POCT PH U (test code = 3254) na 5-8 POCT U LEUK EST (test code = 3263) na Negative - N egative POCT U NIT (test code = 3262) na Negative - Negati ve POCT U PROT (test code = 3259) neg Negative - Negat zoraida POCT U GLU (test code = 3256) neg Negative - Negati ve POCT U KETONE (test code = 3258) na Negative - Neg ative POCT U BLD (test code = 3257) na Negative - Negati ve [facility] W/O SPECIFIC [id number] 17:08:00* Test Item Value Reference Range Interpretation Comme nts POCT PH U (test code = 3254) 5 mg/dl 5-8 POCT U LEUK EST (test code = 3263) neg Negative - Negative POCT U NIT (test code = 3262) pos Negative - Negati ve POCT U PROT (test code = 3259) trace Negative - Negat zoraida POCT U GLU (test code = 3256) neg Negative - Negati ve POCT U KETONE (test code = 3258) neg Negative - Neg ative POCT U BLD (test code = 3257) neg Negative - Negati ve [facility] Notes Date/Time Note Provider Source 2024-12-27 12:15:00 Age: [age] year old GA: 20w2d Doing well without concerns History anxiety/depression -EPDS 2. Denies SI/HI. -SCARLETT-7 score 2. -Will continue to monitor Record at [facility]: LMP 08/11/24; DARRICK by LMP 05/18/25. Ultrasound on 10/02/24: 8 0/7; DARRICK by ultrasound 05/14/25. 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 Informed pt I do not see anything on [place] website regarding her needing her blood redrawn. Panorama test has already been resulted, Horizon is pending. Will contact [facility] for more information. Pt verbalized understanding. Jo Dale RN 12/19/2024 1:58 PM [facility] 2024-12-19 12:41:23 Images from the original note were not included. Forwarding message suresh [employer]. Pt would like to speak to a nurse for clarification. T Lancaster [facility] 2024-12-17 15:56:43 Panorama results received via fax. Stamped and uploaded to chart. Duncan Levine RN 12/17/2024 3:57 PM T Levine RN [facility] 2024-12-10 09:00:00 Loaded pt w 50gm [place] glucola, no issues. Draw time: 1021 [facility] 2024-12-10 09:00:00 Images from the original note were not included. Venipuncture collection performed by clean technique on the left anticubitus. Total of 1 attempts were made. Slight pressure and a bandage/dressing were applied to the site(s). The patient experienced no complications. The following specimens were processed according to instructions and sent to [facility] laboratories per lab order on 12/10/2024 : LT BLUE SST 5 RED 1 LAV 3 PPT DK GREEN (LiHep) DK GREEN (SodH) MARTINEZ DK BLUE (K2) DK BLUE (S) ACD Blood Culture NIPT/NTD [facility] collected [facility] 2024-12-06 15:00:00 Age: [age] year old GA: 17w2d PLAN 1. High-risk in second trimester 2. Obesity during - Healthy diet and exercise encouraged 3. 17 weeks gestation of - POCT Urinalysis w/o Specific [place]- Negative glucose and protein 4. Anxiety and depression Pt reports diagnosis of anxiety an depression at age of 20, was on Lexapro for 1 (one) year and has not taken medication since then. EPDS- 3 and SCARLETT-7 score- 3. Denies SI/HI. Will continue to monitor. Initial OB labs previously ordered and P/H today. MsAFP ordered -Anatomy US ordered labor precautions reviewed --All questions answered F/u with Dr. Bull in 4 weeks or prn Luis Alberto Leon DNP, HAIRSPRING SETTER-BC 12/06/2024 at 3:30 PM [facility] 2024-11-15 12:15:53 Name and verified, pt is aware that metronidazole gel has been ordered to her pharmacy per Dr. Bull Pt verbalized understanding. Jo Dale RN 11/15/2024 12:17 PM [facility] 2024-11-15 10:04:10 Images from the original note were not included. Velvet Lyle is a 24 year old female 14wks The patient is requesting a change in medication form from tablet to gel, as she is unable to swallow the tablet.t requesting if the medication can be changed to gel instead of tablet as she is unable to swallow it. [facility] Melvi Lancaster [facility] 2024-11-07 14:30:00 Age: [age] year old GA: 13w1d 13w1d today by DARRICK of 05/14/25. Was seen at [facility] on 09/05/24 and was given DARRICK of 05/14/25. Will date by help Center ultrasound unless clinically indicated otherwise. Release of records signed. History anxiety/depression -EPDS 7. Denies SI/HI. -SCARLETT-7 score 3. -Will continue to monitor -Will obtain more information at next visit Vaginal odor -Reports vaginal odor without other symptoms -No odor appreciated today. Small amount of whitish vaginal discharge noted -Feminine hygiene discussed -GC/CT and vaginal pathogen collected New OB labs today. No complaints. Discussed do's and don'ts of , safe foods, safe medications. Reviewed Zika virus precautions. I discussed the call schedule and that I might not be the physician delivering her. I discussed I deliver my patients at [facility]. Expectations for weight gain this include 11-20 pounds. Encouraged to call if have any additional questions or concerns. Discussed aneuploidy and carrier screening; patient opts for panorama and Horizon. Does not want to know gender. Discussed with patient that she can have HEALTHY support with her during her delivery (which is subject to change depends on the COVID pandemic) Declined flu vaccines Follow-up in 4 weeks for visit with LEHR OPERATOR Follow-up in 8 weeks for visit with Ml ORIAL MANAGER [facility] 2024-10-23 10:11:12 Noted. Duncan Levine RN 10/23/2024 10:11 AM ORIAL MANAGER Duncan Levine RN [facility] 2024-10-23 09:16:27 LMP 07/17, first consultation for this , sent code to activate Chronic[employer]hart 10/30 w/ MD Ml T Lancaster [facility] 2024-04-02 12:08:50 Spoke to pt regarding control. [...] in. Pt verbalized understanding. Ruby Conway MA [facility] 2024-04-02 12:02:06 Pt wants to know when she got bc inserted. Patti Angulo [facility] 2023-11-20 08:58:52 Attempted to call patient and left voice mail to see if wanting to schedule a consult for nexplanon removal. 2nd attempt. ORIAL MANAGER Adebayo Javed [facility] 2023-11-17 13:50:36 Called pt no answer left voicemail in regards to scheduling appointment for next available. ORIAL MANAGER Maru Cook [facility] 2023-11-17 13:10:16 Velvet Lyle is a 23 year old female that is requesting an appt for nexplanon removal. Please advise. ORIAL MANAGER Joanne Lester [facility] 2023-08-01 15:20:58 Formatting of this [...] RN 08/01/2023 3:24 PM Duncan Levine RN [facility] 2023-08-01 15:13:08 Formatting of this n ote might be different from the original. Attempted to contact patient. No answer, VM left. Duncan Levine RN 08/01/2023 3:13 PM [facility] 2023-08-01 13:09:37 Formatting of this n ote might be different from the original. Attempted to contact patient. No answer, VM left. Patient is not protected since Nexplanon is . Patient needs appointment for removal. Duncan Levine RN 08/01/2023 1:10 PM T [facility] 2023-08-01 12:00:41 Formatting of this n ote might be different from the original. Patient states her nexplanon on 07/28/2023. She wants to know if she is still protected and is requesting a call back. Hazel Jacinto [facility] 2023-06-03 19:22:54 Formatting of this n ote might be different from the original. Pt seen by Provider in triage and pt was medical screen. [facility] gait T [facility] 2023-06-03 19:17:35 Formatting of this n ote might be different from the original. Pt want her control implant check in the left upper because it started hurting yesterday, pt states she had it placed 3 years ago Linda Garcia RN [facility] 2023-06-03 19:14:00 Formatting of this n ote might be different from the original. Medical Screening exam: Velvet Lyle is a 22 year old female [...] performed , no MEC appreciated referred to Emelina Velázquez APRN, NP 06/03/231925 Associated attestation - Austen Springer MD - 06/03/2023 8:09 PM CDT Addendum I was personally available for consultation in the Emergency Department during this encounter and patient evaluation by Holly SARABIA [facility] 2023-05-31 09:15:04 Formatting of this n ote might be different from the original. Returned call to MOP. Given estimate for nexplanon removal/reinsertion. MOP stated she may still be covered under insurance. Advised MOP to return call to update insurance info when she had the ID number. Ronit Ko [facility] 2023-05-30 09:39:05 Formatting of this n ote might be different from the original. Mom is calling she is needing to know how much the nexplanon visit would cost with no insurance. Please call and advise thanks. Jaye Peraza [facility]
--- NOTE | 2025-01-03 15:05 | EDPHYS ---
Physician Documentation [facility] Name: Candice Lyle Age: 24 yrs Sex: Female : 2000 Arrival Date: 01/03/2025 Time: 11:52 Bed 11 Private MD: JUVENTINO Physician Jeff Harris HPI: 01/03 14:57 This 24 yrs old Black Female presents to ER via Ambulatory with complaints of Foot Pain kirit - left, 26 Weeks . 14:57 The patient presents with pain, that is acute, tenderness, at achilles insertion and kirit achilles, no homans , no cords. The complaints affect the left foot, left Achilles. Context: The problem was sustained at an unknown location, resulted from an unknown cause, Mechanism of Injury: Unknown the patient can fully bear weight. Modifying factors: The symptoms are alleviated by elevation of extremity, the symptoms are aggravated by walking. Severity of symptoms: At their worst the symptoms were mild, moderate, in the emergency department the symptoms are unchanged. The patient has experienced similar episodes in the past, several times. 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 - Infectious Disease History:: Denies. - Social history:: Smoking status: Patient denies any tobacco usage or history of. ROS: 14:59 Constitutional: Negative for fever, chills, and weight loss, Eyes: Negative for injury, kirit pain, redness, and discharge, ENT: Negative for injury, pain, and discharge, Neck: Negative for injury, pain, and swelling, Cardiovascular: Negative for chest pain, palpitations, and edema, Respiratory: Negative for shortness of breath, cough, wheezing, and pleuritic chest pain, Abdomen/GI: Negative for abdominal pain, nausea, vomiting, diarrhea, and constipation, Back: Negative for injury and pain, : Negative for injury, bleeding, discharge, and swelling, Neuro: Negative for headache, weakness, numbness, tingling, and seizure, Psych: Negative for depression, anxiety, suicide ideation, homicidal ideation, and hallucinations, Allergy/Immunology: Negative for hives, rash, and allergies, Endocrine: Negative for neck swelling, polydipsia, polyuria, polyphagia, and marked weight changes, Hematologic/Lymphatic: Negative for swollen nodes, abnormal bleeding, and unusual bruising, 14:59 : 14:59 MS/extremity: Positive for decreased range of motion, pain, of the left Achilles, Exam: 14:59 Constitutional: This is a well developed, well nourished patient who is awake, alert, kirit and in no acute distress. Head/Face: Normocephalic, atraumatic. Eyes: Pupils equal round and reactive to light, extra-ocular motions intact. Lids and lashes normal. Conjunctiva and sclera are non-icteric and not injected. Cornea within normal limits. Periorbital areas with no swelling, redness, or edema. ENT: Nares patent. No nasal discharge, no septal abnormalities noted. Tympanic membranes are normal and external auditory canals are clear. Oropharynx with no redness, swelling, or masses, exudates, or evidence of obstruction, uvula midline. Mucous membranes moist. Neck: Trachea midline, no thyromegaly or masses palpated, and no cervical lymphadenopathy. Supple, full range of motion without nuchal rigidity, or vertebral point tenderness. No Meningismus. Chest/axilla: Normal chest wall appearance and motion. Nontender with no deformity. No lesions are appreciated. Cardiovascular: Regular rate and rhythm with a normal S1 and S2. No gallops, murmurs, or rubs. Normal PMI, no JVD. No pulse deficits. Respiratory: Lungs have equal breath sounds bilaterally, clear to auscultation and percussion. No rales, rhonchi or wheezes noted. No increased work of breathing, no retractions or nasal flaring. Back: No spinal tenderness. No costovertebral tenderness. Full range of motion. Skin: Warm, dry with normal turgor. Normal color with no rashes, no lesions, and no evidence of cellulitis. Neuro: Awake and alert, GCS 15, oriented to person, place, time, and situation. Cranial nerves II-XII grossly intact. Motor strength 5/5 in all extremities. Sensory grossly intact. Cerebellar exam normal. Normal gait. Psych: Awake, alert, with orientation to person, place and time. Behavior, mood, and affect are within normal limits. 14:59 Abdomen/GI: Inspection: gravid appearance, is noted, Bowel sounds: normal, Palpation: abdomen is soft and non-tender, Liver: no appreciated palpable abnormalities, Hernia: not appreciated, 14:59 Musculoskeletal/extremity: ROM: intact in all extremities, full active range of motion, full passive range of motion, Circulation is intact in all extremities. Sensation intact. Compartment Syndrome exam of affected extremity: is normal. DVT Exam: no swelling, negative Homans' sign noted on exam, no appreciated bluish discoloration, no erythema, no increased warmth, pain, tenderness, Calves: are non-tender, have equal circumference, Vital Signs: 12:18 BP 133 / 66; Pulse 65; Resp 17; Temp 98.1(TE); Pulse Ox 98% ; Weight 86.18 kg; Height 5 ap3 ft. 4 in. ; Pain 10/10; 12:18 Body Mass Index 32.61 (86.18 kg, 162.56 cm) ap3 12:18 Pain Scale: Adult ap3 MDM: 11:58 Medical Screening Exam initiated kirit 15:01 Differential diagnosis: sprain, arthritis, gout, cellulitis. Data reviewed: vital kirit signs, nurses notes. Consideration of Admission/Observation Escalation of care including admission/observation considered. I considered the following discharge prescriptions or medication management in the emergency department Medications were administered in the Emergency Department. See MAR. Test considered but Not performed: Labs: no labs, no x ray. Care significantly affected by the following chronic conditions: 26 weeks . Counseling: I had a detailed discussion with the patient and/or guardian regarding the historical points, exam findings, and any diagnostic results supporting the discharge/admit diagnosis, the need for outpatient follow up, for definitive care, a orthopedic surgeon. 01/03 14:53 Order name: FHT's kirit 01/03 14:53 Order name: Walking boot kirit Administered Medications: No medications were administered Disposition Summary: 01/03/25 15:04 Discharge Ordered Notes: Location: Home kirit Problem: new kirit Symptoms: have improved kirit Condition: Stable kirit Diagnosis - 26 weeks gestation of kirit - Achilles tendinitis, left leg kirit Followup: kirit - With: Private Physician - When: 2 - 3 days - Reason: Recheck today's complaints, Continuance of care, Re-evaluation by your physician Followup: kirit - With: Erik De Anda MD - When: 2 - 3 days - Reason: Recheck today's complaints, Continuance of care, Re-evaluation by your physician Discharge Instructions: - Discharge Summary Sheet kirit - Achilles Tendinitis kirit - Bursitis kirit - Care kirit - Tendinitis kirit Forms: - Medication Reconciliation Form kirit - Antibiotic Education kirit - Prescription Opioid Use kirit - Patient Portal Instructions kirit - Leadership Thank You Letter kirit Prescriptions: - Tylenol 325 mg Oral tablet - take 2 tablets ORAL route every 6 hours as needed; 40 tablet; Refills: 0, kirit Product Selection Permitted Signatures: Jeff Harris MD MD cha Prokisch, Amanda RN RN ap3
--- NOTE | 2025-01-03 15:05 | ER ---
Nurse's Notes [facility] Name: Candice Lyle Age: 24 yrs Sex: Female : 2000 Arrival Date: 01/03/2025 Time: 11:52 Bed 11 Private MD: Diagnosis: 26 weeks gestation of ;Achilles tendinitis, left leg Presentation: 01/03 12:18 Chief complaint: Patient states: she is having continued left foot pain that started a ap3 few months ago. patient currently rates her pain as a 10/10 on the pain scale. Coronavirus screen: At this time, the client does not indicate any symptoms associated with coronavirus-19. Ebola Screen: No symptoms or risks identified at this time. Initial Sepsis Screen: Does the patient meet any 2 criteria? No. Patient's initial sepsis screen is negative. Does the patient have a suspected source of infection? No. Patient's initial sepsis screen is negative. Risk Assessment: Do you want to hurt yourself or someone else? Patient reports no desire to harm self or others. Onset of symptoms is unknown. 12:18 Method Of Arrival: Ambulatory ap3 12:18 Acuity: BARTOLOME 4 ap3 Triage Assessment: 12:19 General: Appears in no apparent distress. Behavior is calm, cooperative, appropriate ap3 for age. Pain: Complains of pain in left foot Pain currently is 10 out of 10 on a pain scale. Neuro: Level of Consciousness is awake, alert, obeys commands, Oriented to person, place, time, situation, Appropriate for age. Cardiovascular: Patient's skin is warm and dry. Respiratory: Airway is patent Respiratory effort is even, unlabored, Respiratory pattern is regular, symmetrical. Musculoskeletal: Range of motion: intact in all extremities. 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 - Infectious Disease History:: Denies. - Social history:: Smoking status: Patient denies any tobacco usage or history of. Screenin:20 [facility] ED Fall Risk Assessment (Adult) History of falling in the last 3 months, ap3 including since admission No falls in past 3 months (0 pts) Confusion or Disorientation No (0 pts) Intoxicated or Sedated No (0 pts) Impaired Gait No (0 pts) Mobility Assist Device Used No (0 pt) Altered Elimination No (0 pt) Score/Fall Risk Level 0 - 2 = Low Risk Oriented to surroundings, Maintained a safe environment, Educated pt \T\ family on fall prevention, incl call for assistance when getting out of bed, Assessed \T\ reinforced patient's understanding of fall precautions, Hourly rounding (assess needs \T\ fall precautionary measures) done, Used ambulatory aids as needed (educated on \T\ assisted with). Abuse screen: Denies threats or abuse. Nutritional screening: No deficits noted. Tuberculosis screening: No symptoms or risk factors identified. Assessment: 15:14 Reassessment: Unable to complete orders, pt left ED. hb Vital Signs: 12:18 BP 133 / 66; Pulse 65; Resp 17; Temp 98.1(TE); Pulse Ox 98% ; Weight 86.18 kg; Height 5 ap3 ft. 4 in. ; Pain 10/10; 12:18 Body Mass Index 32.61 (86.18 kg, 162.56 cm) ap3 12:18 Pain Scale: Adult ap3 ED Course: 11:54 Patient arrived in ED. im 11:58 Jeff Harris MD is Attending Physician. kirit 12:19 Triage completed. ap3 12:20 Arm band placed on right wrist. ap3 13:48 Ana Maria Malhotra, RN is Primary Nurse. hb 15:04 Erik De Anda MD is Referral Physician. [facility] Administered Medications: No medications were administered Outcome: 15:04 Discharge ordered by . kirit 15:14 Patient left the ED. hb Signatures: Jeff Harris MD MD cha Baxter, Heather, RN RN Yolande Oconnor RN RN ap3 Macie Hernadez im
[2025-01-04 05:47] VITALS: BP 133/66; TEMP 98.1; O2SAT 98
== END 2025-01-03 15:14 | disposition home or self-care (01) ==
LOC: ER 11:52
DX: O26.892 Other specified pregnancy related conditions, second trimester (principal); M76.62 Achilles tendinitis, left leg; Z3A.26 26 weeks gestation of pregnancy
CPT/HCPCS: 99281